=== PATIENT | male | born 1970 | race Caucasian/White ===

== ENCOUNTER → 2018-03-21 | Outpatient (CLI) | payer BC, OTHER ==
--- NOTE | 2018-03-21 09:56 | REP ---
Left ankle series: Four views. History: Left ankle pain. No comparison study. Findings: Ankle mortise is intact. There is moderate soft tissue swelling laterally and anteriorly. Mild medial soft tissue swelling is seen. No fracture is noted. There is Achilles and plantar calcaneal spurring. There is mild spurring at the inferior fibular tip. No definite fracture is seen. Impression: Anterolateral soft-tissue swelling. No fracture or other acute bony abnormality. Heel spurs. Electronically Signed by Mike Reis MD 03/21/2018 11:50 A
== END ==
LOC: M ADAMS 09:20
PROVIDERS: ATTEND Physician Assistant
DX: M25.572 Pain in left ankle and joints of left foot (principal); M77.32 Calcaneal spur, left foot

== ENCOUNTER 2020-04-01 10:00 | Inpatient (IN) | payer BC, OTHER ==
[~2020-04-01] VITALS: Ht 185.4 cm; Wt 138.7 kg
[2020-04-01] MEDS: ASPIRIN 81 MG ENTERIC TAB PO SCH (09:00)
[2020-04-01] MEDS ORDERED: IBUP200T45 PO (10:27)
[2020-04-01 10:52] LABS: BASO % 0.3 % (0.0-1.0); HEMATOCRIT 46.6 % (42.0-52.0); HEMOGLOBIN 15.5 g/dl (13.5-17.5); LYMPH # 0.7 10^3/uL (1.5-5.0); MEAN CORPUSCULAR HGB CONC 33.3 g/dl (32.0-36.5); MEAN CORPUSCULAR VOLUME 84.3 fl (80.0-96.0); MONO # 0.4 10^3/uL (0.0-0.8); MONO % 4.7 % (0.0-5.0); NEUTROPHILS # 6.6 10^3/uL (1.5-8.5); NEUTROPHILS % 85.6 % (36.0-66.0); PLATELET COUNT, AUTOMATED 230 10^3/uL (150-450); RED BLOOD COUNT 5.53 10^6/uL (4.30-6.10); WHITE BLOOD COUNT 7.7 10^3/uL (4.0-10.0)
[2020-04-01] MEDS ORDERED: ENOXAPARIN 100MG/1ML SYRINGE (J1650 PER 10MG) SC SCH (11:00)
[2020-04-01 11:15] LABS: ALBUMIN 3.2 GM/DL (3.2-5.2); ALT/SGPT 60 U/L (12-78); BILIRUBIN,DIRECT 0.1 MG/DL (0.0-0.2); BILIRUBIN,TOTAL 0.4 MG/DL (0.2-1.0); BLOOD UREA NITROGEN 19 MG/DL (7-18); CALCIUM LEVEL 8.8 MG/DL (8.5-10.1); CARBON DIOXIDE LEVEL 28 MEQ/L (21-32); CHLORIDE LEVEL 99 MEQ/L (98-107); CK-MB VALUE MASS < 1.0 NG/ML (<3.6); CPK CREATINE PHOSPHOKINASE 285 U/L (39-308); CREATININE FOR GFR 1.24 MG/DL (0.70-1.30); GLOMERULAR FILTRATION RATE > 60.0 (>56); GLUCOSE, FASTING 177 MG/DL (70-100); MB/CK RELATIVE INDEX 0.35 (< OR =4); NT-PRO BNP 17 PG/ML (<125); SODIUM LEVEL 131 MEQ/L (136-145); TOTAL PROTEIN 7.6 GM/DL (6.4-8.2); TROPONIN I < 0.02 NG/ML (< 0.10)
--- NOTE | 2020-04-01 11:24 | REP ---
INDICATION: DYSPNEA/COUGH. COMPARISON: No comparison study. TECHNIQUE: Semi-erect AP portable exam.. FINDINGS: There are patchy moderate infiltrates involving the right upper lobe left perihilar region and left base region consistent with pneumonia. Heart is not enlarged. Pleural angles are sharp. Pulmonary vasculature is not increased.. IMPRESSION: Bilateral infiltrates, fairly extensive, consistent with pneumonia.. <Electronically signed by Elgin Reis > 04/01/20 [id number]
[2020-04-01] MEDS ORDERED: dexameTHASONE 20MG/5ML VIAL (J1100 PER 1MG) IV ONE (11:30)
[2020-04-01 11:40] LABS: D-DIMER QUANT 549.86 ng/ml (<500)
[2020-04-01 11:59] LABS: C REACTIVE PROTEIN QUANTITATIV 7.58 MG/DL (0.00-0.30); FERRITIN 537 NG/ML (26-388); LDH LACTATE DEHYDROGENASE 375 U/L (87-241)
[2020-04-01] MEDS ORDERED: NS 500 ML IV ONE (12:45)
[2020-04-01] MEDS: cefTRIAXone SOD 1 GM in D5W MINI-BAG PLUS 50 ML IV SCH (13:54)
[2020-04-01 14:18] LABS: INR 1.01; PARTIAL THROMBOPLASTIN TIME 36.2 SECONDS (24.2-38.5); PROTHROMBIN TIME 13.5 SECONDS (12.5-14.3)
[2020-04-01] MEDS: AZITHROMYCIN INJ 500 MG, VIAL MATE ADAPTER 1 EACH in D5W 250 ML IV SCH (14:27)
[2020-04-01] MEDS ORDERED: REMDESIVIR 200 MG in NS 250 ML IV ONE (15:00)
[2020-04-01] MEDS ORDERED: SODIUM CHLORIDE 0.9% INJ 10 ML SYR IV ONE (17:00)
--- NOTE | 2020-04-01 20:20 | HPEPDOC ---
General Date of Admission Apr 01, 2020 at 12:43 Date of Service: Apr 01, 2020 Chief Complaint The patient is a 49-year-old male admitted with a reason for visit of Hypoxixa Pneumonia Due To Covid 19 Virus. Source: Patient History of Present Illness Mr. Barth is a 49-year-old male with obesity and former smoking who is here for worsening shortness of breath, cough, and diarrhea and found to have COVID pneumonia. He does not have a primary and has not seen a physician in some time. He is not on any medications at home. He works at [employer] and he is feeling okay until March 24 when he started to have chills. The following day he started to have malaise. He went to go be tested and he tested positive on March 25. 4 days prior to admission, he lost his sense of taste. 2 days prior to admission, started to have shortness of breath, dry cough, and diarrhea. Symptoms continued to worsen and he came to the ED. While in the ED, he saturated at 84% at room air. He required 5 L nasal cannula to saturate at 93%. Chest x-ray demonstrated bilateral infiltrates consistent with pneumonia. Patient will be admitted for COVID pneumonia. Home Medications Scheduled PRN Ibuprofen (Ibu-200) 200 Mg Tablet, 600 MG PO Q6H PRN for PAIN, (Reported) Allergies Coded Allergies: No Known Allergies (Unverified , 04/01/20) Past Medical History Medical History 1. Obesity Surgical History 1. Ankle fracture requiring surgery Family History Patient reports parents are healthy and alive. Denies any medical history in parents Social History * Smoker: former Smoker (quit smoking 20 years ago. Smoked for about 5 years. One pack per day) Alcohol: occationally (normally 10 beers a week. Due to illness last alcoholic was 2 weeks ago) Drugs: denies A-FIB/CHADSVASC A-FIB History Current/History of A-Fib/PAF?: No Review of Systems Constitutional: Reports: Chills, Fever Eyes: Denies: Vision change ENT: Denies: Sore Throat Skin: Denies: Rash Pulmonary: Reports: Dyspnea, Cough Cardiovascular: Denies: Chest Pain Gastrointestinal: Reports: Diarrhea; Denies: Nausea, Abdominal Pain Genitourinary: Denies: Dysuria Hematologic: Denies: Bruising Neurological: Denies: Weakness Psych: Denies: Anxiety, Depression Physical Examination General Exam: Positive: Alert, Cooperative Eye Exam: Positive: EOMI ENT Exam: Positive: Tongue Midline Neck Exam: Positive: Supple Chest Exam: Positive: Diminished Heart Exam: Positive: Rate Normal, Regular Rhythm Abdomen Exam: Positive: Normal bowel sounds, Soft, Other (obese); Negative: Tenderness Extremity Exam: Negative: Edema Neuro Exam: Positive: Cranial Nerves 3-12 NL Psych Exam: Positive: Mental status NL, Mood NL Vital Signs Vital Signs Date Time Temp Pulse Resp B/P (MAP) Pulse Ox O2 Delivery O2 Flow Rate FiO2 04/01/20 18:53 83 20 87 04/01/20 17:07 98.7 04/01/20 11:52 Nasal Cannula 5.0 04/01/20 11:31 142/65 (90) Laboratory Data Labs 24H Laboratory Tests 2 04/01/20 10:21: Immature Granulocyte % (Auto) 0.4, Neutrophils (%) (Auto) 85.6H, Lymphocytes (%) (Auto) 9.0L, Monocytes (%) (Auto) 4.7, Eosinophils (%) (Auto) 0.0, Basophils (%) (Auto) 0.3, Neutrophils # (Auto) 6.6, Lymphocytes # (Auto) 0.7L, Monocytes # (Auto) 0.4, Eosinophils # (Auto) 0.0, Basophils # (Auto) 0.0, Nucleated Red Blood Cells % (auto) 0.0, Prothrombin Time 13.5, Prothromb Time International Ratio 1.01, Activated Partial Thromboplast Time 36.2, Fibrinogen 789H, D-Dimer, Quantitative 549.86H, Anion Gap 4L, Glomerular Filtration Rate > 60.0, Calcium Level 8.8, Ferritin 537H, Total Bilirubin 0.4, Direct Bilirubin 0.1, Aspartate Amino Transf (AST/SGOT) 41H, Alanine Aminotransferase (ALT/SGPT) 60, Alkaline Phosphatase 51, Lactate Dehydrogenase 375H, Total Creatine Kinase 285, Creatine Kinase MB < 1.0, Creatine Kinase MB Relative Index 0.35, Troponin I < 0.02, C- Reactive Protein, Quantitative 7.58H, NT-Yvb-I-Type Natriuretic Peptide 17, Total Protein 7.6, Albumin 3.2, Albumin/Globulin Ratio 0.7, Thyroid Stimulating Hormone (TSH) 1.010 04/01/20 13:34: Lactic Acid Level 1.4, Procalcitonin 0.24 CBC/BMP Laboratory Tests 04/01/20 10:21 Microbiology Microbiology 04/01/20 Blood Culture, Received Pending 04/01/20 Blood Culture, Received Pending Assessment/Plan Mr. Barth is a 49-year-old male with obesity and history of smoking who is here for acute hypoxic respiratory failure 2/2 COVID pneumonia. He tested positive on March 25, but he started having respiratory symptoms 2 days prior to admission. At room air he saturating at 84%. He is requiring 5 L of oxygen to maintain his saturation. Imaging is suggestive of pneumonia. He will be treated for community-acquired pneumonia and pro-calcitonin will be ordered. He'll be given dexamethasone for his hypoxia. I'll start him on Remdesivir and DVT prophylaxis lovenox for COVID infection Plan / VTE VTE Prophylaxis Ordered?: Yes Plan Plan 1. Acute hypoxic respiratory failure secondary to COVID pneumonia At room air desaturated at 84% Secondary to COVID pneumonia Currently requires 5 L of oxygen to maintain saturation 2. COVID pneumonia Tested positive on March 25 Respiratory symptoms started 2 days prior Dexamethasone will be started DVT prophylaxis Lovenox as d-dimer is less than 5000 Remdesivir for 5 days Ceftriaxone and azithromycin for community acquired pneumonia Trend inflammatory markers 3. Obesity BMI of 39.7 Patient should follow-up with PCP to discuss weight loss strategies 4. DVT prophylaxis Lovenox DAXA COLIN DO Apr 01, 2020 20:20
[2020-04-02 00:18] VITALS: BP 137/71
[2020-04-02] MEDS: ENOXAPARIN 40MG/0.4ML SYRINGE (J1650 PER 10MG) SC SCH ×3 (01:09→22:45)
[2020-04-02 05:33] VITALS: BP 127/70
[2020-04-02 07:21] LABS: BASO % 0.1 % (0.0-1.0); HEMATOCRIT 43.9 % (42.0-52.0); HEMOGLOBIN 14.2 g/dl (13.5-17.5); LYMPH # 1.3 10^3/uL (1.5-5.0); MEAN CORPUSCULAR HGB CONC 32.3 g/dl (32.0-36.5); MEAN CORPUSCULAR VOLUME 86.4 fl (80.0-96.0); MONO # 0.6 10^3/uL (0.0-0.8); MONO % 6.6 % (0.0-5.0); NEUTROPHILS # 6.7 10^3/uL (1.5-8.5); PLATELET COUNT, AUTOMATED 239 10^3/uL (150-450); RED BLOOD COUNT 5.08 10^6/uL (4.30-6.10); WHITE BLOOD COUNT 8.6 10^3/uL (4.0-10.0)
[2020-04-02 07:55] LABS: ALBUMIN 2.9 GM/DL (3.2-5.2); ALT/SGPT 48 U/L (12-78); BILIRUBIN,DIRECT < 0.1 MG/DL (0.0-0.2); BILIRUBIN,TOTAL 0.4 MG/DL (0.2-1.0); BLOOD UREA NITROGEN 23 MG/DL (7-18); CALCIUM LEVEL 8.5 MG/DL (8.5-10.1); CARBON DIOXIDE LEVEL 26 MEQ/L (21-32); CHLORIDE LEVEL 101 MEQ/L (98-107); CREATININE FOR GFR 0.96 MG/DL (0.70-1.30); FERRITIN 540 NG/ML (26-388); GLOMERULAR FILTRATION RATE > 60.0 (>56); GLUCOSE, FASTING 143 MG/DL (70-100); MAGNESIUM LEVEL 2.3 MG/DL (1.8-2.4); NT-PRO BNP 47 PG/ML (<125); POTASSIUM SERUM 4.2 MEQ/L (3.5-5.1); SODIUM LEVEL 133 MEQ/L (136-145); TOTAL PROTEIN 6.9 GM/DL (6.4-8.2)
[2020-04-02 08:01] LABS: PROTHROMBIN TIME 13.4 SECONDS (12.5-14.3)
[2020-04-02 08:02] LABS: PARTIAL THROMBOPLASTIN TIME 33.7 SECONDS (24.2-38.5)
[2020-04-02] MEDS: dexameTHASONE 4 MG/ML 1ML VIAL (J1100 PER 1MG) IV SCH (10:09)
[2020-04-02] MEDS: ASPIRIN 81 MG ENTERIC TAB PO SCH (10:09)
[2020-04-02 12:00] VITALS: BP 118/63
--- NOTE | 2020-04-02 12:15 | IPNPDOC ---
Subjective Date Seen The patient was seen on 04/02/20. Subjective Chief Complaint/HPI SUBJECTIVE: Pt was seen and examined at bedside. He states that he feels much better from when he came in. He is able to speak with me in full sentences without any sob, or accessory muscle use. He's required more oxygen to hold his saturations >90% and currently on vapotherm 100% FIO2 and 35L. He denies CP, fever, chills, n/v/d, or abdominal discomfort. OBJECTIVE: PHYSICAL EXAMINATION: VS: see below. Currently satting 91% on 35 L 100% FIO2 Constitutional: Awake and alert, NAD, able to speak in full sentences Respiratory: No use of accessory muscles. unable to appreciate wheezing or rales Cardiovascular: no m/g/r appreciated; no lower extr edema Gastrointestinal: Abdomen is soft, non distended, non tender, normal bowel sounds Neurologic: No focal neurological deficit Mental Status: A&O x3, normal affect Skin: Warm, dry, no cyanosis or clubbing LABS: SEE BELOW IMAGING: CXR: 04/01 shows bilateral infiltrates that are fairly extensive ASSESSMENT AND PLAN: This is an obese 49-year-old male who is a former smoking, who presents to [facility] ER with cc of worsening shortness of breath, cough, and diarrhea and found to have COVID pneumonia. He works at [employer] and he is feeling okay until March 24 when he started to have chills. The following day he started to have malaise. He went to go be tested and he tested positive on March 25. 4 days prior to this admission, he lost his sense of taste. 2 days prior to admission, he started to have shortness of breath, dry cough, and diarrhea. In the ED, he satting at 84% on room air. He required 5 L nasal cannula to saturate at 93%. Chest x-ray demonstrated extensive bilateral infiltrates consistent with pneumonia. Patient will be admitted for COVID pneumonia with superimposed PNA. Since admission, pt's had increased requirements of oxygen and he's currently requiring vapotherm 35L 100% FIO2 to sat over 90%. We will continue to trend his inflammatory markers and try to wean down oxygen as tolerated. His procal and LA are wnl. We will continue decadron and remdisivir and lovenox 40mg BID for anticoagulation. Currently, this am at bedside his FIO2 is weaned to 85% and 35L and we will continue to monitor his saturations to titrate his O2 >90%. 1. Acute hypoxic respiratory failure secondary to COVID 19 - Tested positive on 03/25/2020 - With superimposed PNA - XR chest shows extensive bilateral infiltrates - Currently requiring vapotherm 35 L 100% FIO2 to sat over 90% - Will order for proning - Will order incentive spirometry and acapella - C/w trending markers - Lovenox 40 BID for anticoag - C/w remdisivir and dexa - Procal wnl; however, high suspicion for a superimposed CAP- c/w zithromax and rocephin #Obesity - BMI 39 - Pt would benefit from a pulmonogy outpt followup to eval for FRANCISCO - Advise follow with PCP outpt for weight loss strategies and to go over CV risk factors DVT ppx: Lovenox GI ppx: Protonix Fluids: none Diet: Regular Code status: Full Disposition: Pt may worsen as he's been requiring more O2 in a short amount of time. Will order for awake proning and encourage incentive spirometry and acapella for lung expansion. Will try and wean FIO2 to titrate O2 >90% as can be tolerated by the patient. Objective Physical Examination General Exam: Positive: Alert, Cooperative Eye Exam: Positive: EOMI ENT Exam: Positive: Tongue Midline Neck Exam: Positive: Supple Chest Exam: Positive: Diminished Heart Exam: Positive: Rate Normal, Regular Rhythm Abdomen Exam: Positive: Normal bowel sounds, Soft, Other (obese); Negative: Tenderness Extremity Exam: Negative: Edema Neuro Exam: Positive: Cranial Nerves 3-12 NL Psych Exam: Positive: Mental status NL, Mood NL Assessment /Plan Plan/VTE VTE Prophylaxis Ordered?: Yes VS, I&O, 24H, Fishbone Vital Signs/I&O Vital Signs Date Time Temp Pulse Resp B/P (MAP) Pulse Ox O2 Delivery O2 Flow Rate FiO2 04/02/20 08:38 91 HVNI-Vapotherm 35.0 100 04/02/20 05:33 99.7 87 30 127/70 (89) I&O- Last 24 Hours up to 6 AM 04/02/20 06:00 Intake Total 690 ml Balance 690 ml Laboratory Data 24H LABS Laboratory Tests 2 04/01/20 13:34: Lactic Acid Level 1.4, Procalcitonin 0.24 04/02/20 06:37: Procalcitonin 0.22, Immature Granulocyte % (Auto) 0.3, Neutrophils (%) (Auto) 78.0H, Lymphocytes (%) (Auto) 15.0L, Monocytes (%) (Auto) 6.6H, Eosinophils (%) (Auto) 0.0, Basophils (%) (Auto) 0.1, Neutrophils # (Auto) 6.7, Lymphocytes # (Auto) 1.3L, Monocytes # (Auto) 0.6, Eosinophils # (Auto) 0.0, Basophils # (Auto ) 0.0, Nucleated Red Blood Cells % (auto) 0.0, Prothrombin Time 13.4, Prothromb Time International Ratio 1.00, Activated Partial Thromboplast Time 33.7, Fibrinogen 677H, Anion Gap 6L, Glomerular Filtration Rate > 60.0, Calcium Level 8.5, Magnesium Level 2.3, Ferritin 540H, Total Bilirubin 0.4, Direct Bilirubin < 0.1, Aspartate Amino Transf (AST/SGOT) 29, Alanine Aminotransferase (ALT/SGPT) 48, Alkaline Phosphatase 45, CM-Gnf-S-Type Natriuretic Peptide 47, Total Protein 6.9, Albumin 2.9L, Albumin/Globulin Ratio 0.7 04/02/20 07:00: CBC/BMP Laboratory Tests 04/02/20 06:37 Microbiology Microbiology 04/01/20 Blood Culture, Received Pending 04/01/20 Blood Culture, Received Pending GME ATTESTATION GME ATTESTATION My faculty preceptor for this patient encounter was physically present during the encounter and was fully available. All aspects of the patient interview, examination, medical decision making process, and medical care plan development were reviewed and approved by the faculty preceptor. The faculty preceptor is aware and concurs with the plan as stated in the body of this note and will att est to such by his/her cosignature. ATTENDING NOTE I, Fantasma Garcias MD, have independently examined this patient and performed my own physical exam, as well as reviewed the documentation and edited where necessary. I have discussed in detail with the resident / student the findings and plan of treatment as documented by the resident / student and edited their note. I agree with their findings and treatment plan and have edited their documentation. Lakshmi Velarde DO Apr 02, 2020 11:07 FANTASMA GARCIAS MD Apr 02, 2020 14:49
[2020-04-02] MEDS: AZITHROMYCIN INJ 500 MG, VIAL MATE ADAPTER 1 EACH in D5W 250 ML IV SCH (13:40)
[2020-04-02] MEDS: cefTRIAXone SOD 1 GM in D5W MINI-BAG PLUS 50 ML IV SCH (14:49)
[2020-04-02] MEDS: REMDESIVIR 100 MG in NS 250 ML IV SCH (15:33)
[2020-04-02] MEDS: SODIUM CHLORIDE 0.9% INJ 10 ML SYR IV SCH (15:33)
[2020-04-02 19:38] VITALS: BP 126/65
--- NOTE | 2020-04-02 21:25 | ECGEPIP ---
[facility] - ED Test Date: 2020-04-01 Pat Name: TIARA MENDIETA Department: Room: [place] [address] Gender: Male Service Manager: : [id number] Requested By: JOHN Paez Order Number: [id number] Reading MD: Juan Pacheco Measurements Intervals [place] Rate: 83 P: 58 HI: 165 QRS: -16 QRSD: 118 T: 26 QT: 368 QTc: 433 Interpretive Statements SINUS RHYTHM INDETERMINATE AXIS POOR R WAVE PROGRESSION PATTERN CONSISTENT WITH PULMONARY DISEASE MODERATE INTRAVENTRICULAR CONDUCTION DELAY NO PRIORS FOR COMPARISON Electronically Signed on 04-02-2020 21:25:37 EST by Juan Pacheco
[2020-04-02 23:04] VITALS: O2SAT 91
[2020-04-02 23:57] VITALS: BP 130/84
[2020-04-03] VITALS (9 sets, daily range): BP systolic 113–151; BP diastolic 59–67; O2SAT 89–95
[2020-04-03] MEDS: ASPIRIN 81 MG ENTERIC TAB PO SCH (08:37)
[2020-04-03] MEDS: dexameTHASONE 4 MG/ML 1ML VIAL (J1100 PER 1MG) IV SCH (08:37)
[2020-04-03 11:16] LABS: BASO % 0.2 % (0.0-1.0); HEMATOCRIT 43.9 % (42.0-52.0); HEMOGLOBIN 13.8 g/dl (13.5-17.5); LYMPH # 1.1 10^3/uL (1.5-5.0); LYMPH % 9.6 % (24.0-44.0); MEAN CORPUSCULAR HEMOGLOBIN 27.2 pg (27.0-33.0); MEAN CORPUSCULAR HGB CONC 31.4 g/dl (32.0-36.5); MEAN CORPUSCULAR VOLUME 86.4 fl (80.0-96.0); MONO # 0.7 10^3/uL (0.0-0.8); MONO % 6.1 % (0.0-5.0); NEUTROPHILS # 9.3 10^3/uL (1.5-8.5); NEUTROPHILS % 83.3 % (36.0-66.0); PLATELET COUNT, AUTOMATED 300 10^3/uL (150-450); RED BLOOD COUNT 5.08 10^6/uL (4.30-6.10); WHITE BLOOD COUNT 11.2 10^3/uL (4.0-10.0)
[2020-04-03 11:43] LABS: INR 1.06
[2020-04-03 11:44] LABS: PARTIAL THROMBOPLASTIN TIME 32.9 SECONDS (24.2-38.5)
[2020-04-03 11:54] LABS: ALBUMIN 2.8 GM/DL (3.2-5.2); ALT/SGPT 43 U/L (12-78); BILIRUBIN,DIRECT 0.2 MG/DL (0.0-0.2); BILIRUBIN,TOTAL 0.4 MG/DL (0.2-1.0); BLOOD UREA NITROGEN 20 MG/DL (7-18); CALCIUM LEVEL 8.6 MG/DL (8.5-10.1); CARBON DIOXIDE LEVEL 27 MEQ/L (21-32); CHLORIDE LEVEL 99 MEQ/L (98-107); CREATININE FOR GFR 0.93 MG/DL (0.70-1.30); FERRITIN 516 NG/ML (26-388); GLOMERULAR FILTRATION RATE > 60.0 (>56); GLUCOSE, FASTING 210 MG/DL (70-100); MAGNESIUM LEVEL 2.3 MG/DL (1.8-2.4); NT-PRO BNP 142 PG/ML (<125); POTASSIUM SERUM 4.3 MEQ/L (3.5-5.1); SODIUM LEVEL 133 MEQ/L (136-145); TOTAL PROTEIN 6.7 GM/DL (6.4-8.2)
[2020-04-03] MEDS ORDERED: guaiFENesin SYRUP 200 MG/10 ML UDC PO PRN (12:00)
[2020-04-03] MEDS: ENOXAPARIN 40MG/0.4ML SYRINGE (J1650 PER 10MG) SC SCH ×2 (14:12→23:15)
[2020-04-03] MEDS: AZITHROMYCIN INJ 500 MG, VIAL MATE ADAPTER 1 EACH in D5W 250 ML IV SCH (14:12)
[2020-04-03] MEDS: BENZONATATE 100 MG CAP PO SCH ×3 (16:00→23:35)
[2020-04-03] MEDS: cefTRIAXone SOD 1 GM in D5W MINI-BAG PLUS 50 ML IV SCH (16:02)
--- NOTE | 2020-04-03 16:16 | IPNPDOC ---
Subjective Date Seen The patient was seen on 04/03/20. Subjective Chief Complaint/HPI SUBJECTIVE: Pt was seen and examined at bedside sitting on the edge of his bed leaned over his tray table. Pt is very pleasant. He states that he continues to feel better. He is able to speak with me in full sentences without any sob, or accessory muscle use. He's required more oxygen to hold his saturations >90% and currently on vapotherm 100% FIO2 and 33L. He states that he's been coughing and feels like it's breaking up in his chest but he cannot cough it out. Will order for some robitussin and tesslon perles. He denies CP, fever, chills, n/v/d, or abdominal discomfort. OBJECTIVE: PHYSICAL EXAMINATION: VS: see below. Currently satting 91% on 35 L 100% FIO2 Constitutional: Awake and alert, NAD, able to speak in full sentences Respiratory: No use of accessory muscles. unable to appreciate wheezing or rales Cardiovascular: no m/g/r appreciated; no lower extr edema Gastrointestinal: Abdomen is soft, non distended, non tender, normal bowel sounds Neurologic: No focal neurological deficit Mental Status: A&O x3, normal affect Skin: Warm, dry, no cyanosis or clubbing LABS: SEE BELOW IMAGING: CXR: 04/01 shows bilateral infiltrates that are fairly extensive ASSESSMENT AND PLAN: This is an obese 49-year-old male who is a former smoking, who presents to [facility] ER with cc of worsening shortness of breath, cough, and diarrhea and found to have COVID pneumonia. He works at [employer] and he is feeling okay until March 24 when he started to have chills. The following day he started to have malaise. He went to go be tested and he tested positive on March 25. 4 days prior to this admission, he lost his sense of taste. 2 days prior to admission, he started to have shortness of breath, dry cough, and diarrhea. In the ED, he satting at 84% on room air. He required 5 L nasal cannula to saturate at 93%. Chest x-ray demonstrated extensive bilateral infiltrates consistent with pneumonia. Patient will be admitted for COVID pneumonia with superimposed PNA. Since admission, pt's had increased requirements of oxygen and he's currently requiring vapotherm 35L 100% FIO2 to sat over 90%. We will continue to trend his inflammatory markers and try to wean down oxygen as tolerated. His procal and LA are wnl. We will continue decadron and remdisivir and lovenox 40mg BID for anticoagulation. Currently, this am at bedside his FIO2 is weaned to 85% and 35L and we will continue to monitor his saturations to titrate his O2 >90%. 1. Acute hypoxic respiratory failure secondary to COVID 19 - Tested positive on 03/25/2020 - With superimposed PNA -XR chest shows extensive bilateral infiltrates - Currently requiring vapotherm 33 L 100% FIO2 to sat over 90%- will continue to wean as tolerated - Continue to encourage awake proning - Will order for tessjamaln luna and andres as pt complains of cough but unable to cough up anything - C/w incentive spirometry and acapella - C/w trending markers - Lovenox 40 BID for anticoag - C/w remdisivir and dexa - Procal wnl; however, high suspicion for a superimposed CAP- c/w zithromax and rocephin #Obesity - BMI 39 - Pt would benefit from a pulmonology outpt followup to eval for FRANCISCO/[facility]HS - Advise follow with PCP outpt for weight loss strategies and to go over CV risk factors DVT ppx: Lovenox GI ppx: Protonix Fluids: none Diet: Regular Code status: Full Disposition: Pt may worsen as he's been requiring more O2 in a short amount of time. Will order for awake proning and encourage incentive spirometry and acapella for lung expansion. Will try and wean FIO2 to titrate O2 >90% as can be tolerated by the patient. Objective Physical Examination General Exam: Positive: Alert, Cooperative Eye Exam: Positive: EOMI ENT Exam: Positive: Tongue Midline Neck Exam: Positive: Supple Chest Exam: Positive: Diminished Heart Exam: Positive: Rate Normal, Regular Rhythm Abdomen Exam: Positive: Normal bowel sounds, Soft, Other (obese); Negative: Tenderness Extremity Exam: Negative: Edema Neuro Exam: Positive: Cranial Nerves 3-12 NL Psych Exam: Positive: Mental status NL, Mood NL Assessment /Plan Plan/VTE VTE Prophylaxis Ordered?: Yes VS, I&O, 24H, Fishbone Vital Signs/I&O Vital Signs Date Time Temp Pulse Resp B/P (MAP) Pulse Ox O2 Delivery O2 Flow Rate FiO2 04/03/20 08:27 91 HVNI-Vapotherm 33.0 100 04/03/20 08:00 98.8 79 24 126/61 (82) I&O- Last 24 Hours up to 6 AM 04/03/20 06:00 Intake Total 1630 ml Output Total 2050 ml Balance -420 ml Laboratory Data Microbiology Microbiology 04/01/20 Blood Culture - Preliminary, Resulted No growth after 24 hours . All specim... 04/01/20 Blood Culture - Preliminary, Resulted No growth after 24 hours . All specim... GME ATTESTATION GME ATTESTATION My faculty preceptor for this patient encounter was physically present during the encounter and was fully available. All aspects of the patient interview, exa mination, medical decision making process, and medical care plan development were reviewed and approved by the faculty preceptor. The faculty preceptor is aware and concurs with the plan as stated in the body of this note and will attest to such by his/her cosignature. Lakshmi Velarde DO Apr 03, 2020 10:05
[2020-04-03] MEDS: REMDESIVIR 100 MG in NS 250 ML IV SCH (17:26)
[2020-04-03] MEDS: SODIUM CHLORIDE 0.9% INJ 10 ML SYR IV SCH (17:53)
[2020-04-03] MEDS: NICOTINE 21MG/24HR 1 EA TRANSDERMAL TD SCH (21:00)
[2020-04-04] VITALS (8 sets, daily range): BP systolic 122–132; BP diastolic 63–70; O2SAT 90–92
[2020-04-04 07:55] LABS: BASO % 0.2 % (0.0-1.0); HEMOGLOBIN 13.3 g/dl (13.5-17.5); LYMPH # 2.1 10^3/uL (1.5-5.0); LYMPH % 18.8 % (24.0-44.0); MEAN CORPUSCULAR HGB CONC 30.9 g/dl (32.0-36.5); MEAN CORPUSCULAR VOLUME 87.4 fl (80.0-96.0); MONO # 0.7 10^3/uL (0.0-0.8); MONO % 6.7 % (0.0-5.0); NEUTROPHILS # 8.1 10^3/uL (1.5-8.5); NEUTROPHILS % 73.8 % (36.0-66.0); PLATELET COUNT, AUTOMATED 335 10^3/uL (150-450); RED BLOOD COUNT 4.92 10^6/uL (4.30-6.10)
[2020-04-04 08:31] LABS: INR 1.09; PROTHROMBIN TIME 14.4 SECONDS (12.5-14.3)
[2020-04-04 08:33] LABS: PARTIAL THROMBOPLASTIN TIME 32.6 SECONDS (24.2-38.5)
[2020-04-04 09:05] LABS: ALBUMIN 2.7 GM/DL (3.2-5.2); ALT/SGPT 40 U/L (12-78); BILIRUBIN,DIRECT 0.1 MG/DL (0.0-0.2); BILIRUBIN,TOTAL 0.4 MG/DL (0.2-1.0); BLOOD UREA NITROGEN 20 MG/DL (7-18); CALCIUM LEVEL 8.3 MG/DL (8.5-10.1); CARBON DIOXIDE LEVEL 28 MEQ/L (21-32); CHLORIDE LEVEL 102 MEQ/L (98-107); CREATININE FOR GFR 0.79 MG/DL (0.70-1.30); FERRITIN 424 NG/ML (26-388); GLOMERULAR FILTRATION RATE > 60.0 (>56); GLUCOSE, FASTING 113 MG/DL (70-100); MAGNESIUM LEVEL 2.3 MG/DL (1.8-2.4); NT-PRO BNP 127 PG/ML (<125); POTASSIUM SERUM 4.2 MEQ/L (3.5-5.1); SODIUM LEVEL 136 MEQ/L (136-145); TOTAL PROTEIN 6.4 GM/DL (6.4-8.2)
[2020-04-04] MEDS: ENOXAPARIN 40MG/0.4ML SYRINGE (J1650 PER 10MG) SC SCH ×2 (09:17→21:58)
[2020-04-04] MEDS: BENZONATATE 100 MG CAP PO SCH ×3 (09:17→21:58)
[2020-04-04] MEDS: ASPIRIN 81 MG ENTERIC TAB PO SCH (09:17)
[2020-04-04] MEDS: dexameTHASONE 4 MG/ML 1ML VIAL (J1100 PER 1MG) IV SCH (09:18)
[2020-04-04] MEDS: SODIUM CHLORIDE 0.9% INJ 10 ML SYR IV SCH (16:00)
--- NOTE | 2020-04-04 16:00 | IPNPDOC ---
Date Seen The patient was seen on 04/04/20. Progress Note SUBJECTIVE: Reports significant improvement in cough with benzonatate, dyspnea is improving as well, no new complaints today. He is tolerating his diet without difficulty, denies nausea, vomiting, abdominal pain or diarrhea. PHYSICAL EXAMINATION: VITAL SIGNS: Please see below. GENERAL: No distress HEENT: Normocephalic, atraumatic, moist mucous membranes NECK: Supple CARDIOVASCULAR EXAMINATION: S1, S2, no murmurs RESPIRATORY EXAMINATION: Basilar rhonchi, no wheezing ABDOMINAL EXAMINATION: Soft, nontender, nondistended, positive bowel sounds EXTREMITIES: Range of motion intact SKIN: No rash NEUROLOGICAL EXAMINATION: Alert and oriented 3, no focal deficits PSYCHIATRIC EXAMINATION: Calm and cooperative LABORATORY DATA, IMAGING STUDIES, MICROBIOLOGY: Please see below. ASSESSMENT AND PLAN: 49-year-old obese male is admitted for acute hypoxemic respiratory failure secondary to Covid pneumonia PROBLEMS: 1. Acute hypoxemic respiratory failure secondary to Covid pneumonia: Rest or function has been stable and slowly improving over the past few days, remains on OptiFlow, currently on 100% FiO2. We'll titrate as needed. Continue Decadron, Remdisivir and empiric antibiotics. Benzonatate as needed. Lovenox for DVT prophylaxis VS, I&O, 24H, Fishbone Vital Signs/I&O Vital Signs Date Time Temp Pulse Resp B/P (MAP) Pulse Ox O2 Delivery O2 Flow Rate FiO2 04/04/20 09:03 93 HVNI-Vapotherm 36.0 100 04/04/20 08:00 95.6 78 20 132/63 (86) I&O- Last 24 Hours up to 6 AM 04/04/20 06:00 Intake Total 1240 ml Output Total 1100 ml Balance 140 ml Laboratory Data 24H LABS Laboratory Tests 2 04/04/20 06:58: Immature Granulocyte % (Auto) 0.5, Neutrophils (%) (Auto) 73.8H, Lymphocytes (%) (Auto) 18.8L, Monocytes (%) (Auto) 6.7H, Eosinophils (%) (Auto) 0.0, Basophils (%) (Auto) 0.2, Neutrophils # (Auto) 8.1, Lymphocytes # (Auto) 2.1, Monocytes # (Auto) 0.7, Eosinophils # (Auto) 0.0, Basophils # (Auto) 0.0, Nucleated Red Blood Cells % (auto) 0.0, Prothrombin Time 14.4H, Prothromb Time International Ratio 1.09, Activated Partial Thromboplast Time 32.6, Fibrinogen 646H, Anion Gap 6L, Glomerular Filtration Rate > 60.0, Calcium Level 8.3L, Magnesium Level 2.3, Ferritin 424H, Total Bilirubin 0.4, Direct Bilirubin 0.1, Aspartate Amino Transf (AST/SGOT) 24, Alanine Aminotransferase (ALT/SGPT) 40, Alkaline Phosphatase 47, HH-Tbp-Q-Type Natriuretic Peptide 127H, Total Protein 6.4, Albumin 2.7L, Albumin/Globulin Ratio 0.7 CBC/BMP Laboratory Tests 04/04/20 06:58 Microbiology Microbiology 04/01/20 Blood Culture - Preliminary, Resulted No Growth after 72 hours. All specime... 04/01/20 Blood Culture - Preliminary, Resulted No Growth after 72 hours. All specime... JENN MORTON MD Apr 04, 2020 16:00
[2020-04-04] MEDS: cefTRIAXone SOD 1 GM in D5W MINI-BAG PLUS 50 ML IV SCH (16:13)
[2020-04-04] MEDS: REMDESIVIR 100 MG in NS 250 ML IV SCH (17:03)
[2020-04-04] MEDS: NICOTINE 21MG/24HR 1 EA TRANSDERMAL TD SCH (19:45)
[2020-04-05] VITALS (8 sets, daily range): BP systolic 135–165; BP diastolic 64–78; O2SAT 87–97
[2020-04-05] MEDS: dexameTHASONE 4 MG/ML 1ML VIAL (J1100 PER 1MG) IV SCH ×2 (09:00→09:11)
[2020-04-05] MEDS: ASPIRIN 81 MG ENTERIC TAB PO SCH (09:10)
[2020-04-05] MEDS: BENZONATATE 100 MG CAP PO SCH ×3 (09:10→20:39)
[2020-04-05 10:47] LABS: BASO % 0.2 % (0.0-1.0); EOS % 0.2 % (0.0-3.0); HEMATOCRIT 42.7 % (42.0-52.0); HEMOGLOBIN 13.6 g/dl (13.5-17.5); LYMPH # 2.1 10^3/uL (1.5-5.0); MEAN CORPUSCULAR HEMOGLOBIN 27.8 pg (27.0-33.0); MEAN CORPUSCULAR HGB CONC 31.9 g/dl (32.0-36.5); MEAN CORPUSCULAR VOLUME 87.3 fl (80.0-96.0); MONO # 0.6 10^3/uL (0.0-0.8); MONO % 4.9 % (0.0-5.0); NEUTROPHILS # 9.6 10^3/uL (1.5-8.5); PLATELET COUNT, AUTOMATED 389 10^3/uL (150-450); RED BLOOD COUNT 4.89 10^6/uL (4.30-6.10); WHITE BLOOD COUNT 12.5 10^3/uL (4.0-10.0)
[2020-04-05] MEDS: ENOXAPARIN 40MG/0.4ML SYRINGE (J1650 PER 10MG) SC SCH (11:00)
[2020-04-05 11:04] LABS: INR 1.11; PROTHROMBIN TIME 14.6 SECONDS (12.5-14.3)
[2020-04-05 11:05] LABS: PARTIAL THROMBOPLASTIN TIME 29.2 SECONDS (24.2-38.5)
[2020-04-05 11:25] LABS: ALBUMIN 2.6 GM/DL (3.2-5.2); ALT/SGPT 40 U/L (12-78); BILIRUBIN,DIRECT < 0.1 MG/DL (0.0-0.2); BILIRUBIN,TOTAL 0.4 MG/DL (0.2-1.0); BLOOD UREA NITROGEN 20 MG/DL (7-18); CALCIUM LEVEL 8.5 MG/DL (8.5-10.1); CARBON DIOXIDE LEVEL 23 MEQ/L (21-32); CHLORIDE LEVEL 102 MEQ/L (98-107); CREATININE FOR GFR 0.86 MG/DL (0.70-1.30); FERRITIN 354 NG/ML (26-388); GLOMERULAR FILTRATION RATE > 60.0 (>56); GLUCOSE, FASTING 172 MG/DL (70-100); MAGNESIUM LEVEL 2.1 MG/DL (1.8-2.4); NT-PRO BNP 120 PG/ML (<125); POTASSIUM SERUM 3.9 MEQ/L (3.5-5.1); SODIUM LEVEL 134 MEQ/L (136-145); TOTAL PROTEIN 7.1 GM/DL (6.4-8.2)
--- NOTE | 2020-04-05 11:36 | IPN ---
PROGRESS NOTE DATE: 04/05/2020 SUBJECTIVE: Jose is seen with COVID related pneumonia with hypoxemia. He is requiring high flow oxygen particularly at night. I believe he has sleep apnea. He has loud snoring and excessive somnolence, he probably has undiagnosed sleep apnea which accounts for some of his nocturnal drop of his saturations. PHYSICAL EXAMINATION: VITAL SIGNS: Afebrile. Vital signs are stable. O2 sat is 90% on Vapotherm. GENERAL APPEARANCE: Alert, conversant, in no distress. LUNGS: Decreased breath sounds. Scattered rhonchi. HEART: Regular rhythm. ABDOMEN: Soft, obese, nontender, no masses. EXTREMITIES: Trace peripheral edema. LABORATORY DATA: Labs are all pending today. IMPRESSION: Acute hypoxemic respiratory failure from COVID pneumonia. PLAN: He is on Decadron, Remdesivir and empiric antibiotics. Once oxygen requirements drop he can be discharged home with supplemental oxygen. He does not have a primary care provider, this will need to be arranged before discharge as well.
[2020-04-05] MEDS ORDERED: LIDOCAINE 1% MDV 20ML VIAL As Ordered ONE (16:43)
[2020-04-05] MEDS: SODIUM CHLORIDE 0.9% INJ 10 ML SYR IV SCH ×2 (18:24→20:39)
[2020-04-05] MEDS: cefTRIAXone SOD 1 GM in D5W MINI-BAG PLUS 50 ML IV SCH (18:25)
[2020-04-05] MEDS: NICOTINE 21MG/24HR 1 EA TRANSDERMAL TD SCH (20:40)
[2020-04-05] MEDS: REMDESIVIR 100 MG in NS 250 ML IV SCH (20:41)
[2020-04-06] VITALS: BP 159/74; O2SAT 92
[2020-04-06] MEDS: ENOXAPARIN 40MG/0.4ML SYRINGE (J1650 PER 10MG) SC SCH ×3 (00:01→22:08)
[2020-04-06 04:00] VITALS: BP 147/70; O2SAT 90
[2020-04-06 08:00] VITALS: O2SAT 86
[2020-04-06 08:26] LABS: BASO % 0.2 % (0.0-1.0); EOS # 0.1 10^3/uL (0.0-0.5); EOS % 0.6 % (0.0-3.0); HEMATOCRIT 42.6 % (42.0-52.0); HEMOGLOBIN 13.9 g/dl (13.5-17.5); LYMPH % 16.2 % (24.0-44.0); MEAN CORPUSCULAR HEMOGLOBIN 28.2 pg (27.0-33.0); MEAN CORPUSCULAR HGB CONC 32.6 g/dl (32.0-36.5); MEAN CORPUSCULAR VOLUME 86.4 fl (80.0-96.0); MONO # 0.9 10^3/uL (0.0-0.8); NEUTROPHILS # 9.3 10^3/uL (1.5-8.5); NEUTROPHILS % 74.9 % (36.0-66.0); PLATELET COUNT, AUTOMATED 404 10^3/uL (150-450); RED BLOOD COUNT 4.93 10^6/uL (4.30-6.10); WHITE BLOOD COUNT 12.5 10^3/uL (4.0-10.0)
[2020-04-06 08:39] LABS: INR 1.17; PROTHROMBIN TIME 15.2 SECONDS (12.5-14.3)
[2020-04-06 08:40] LABS: PARTIAL THROMBOPLASTIN TIME 31.3 SECONDS (24.2-38.5)
[2020-04-06 09:07] LABS: ALBUMIN 2.7 GM/DL (3.2-5.2); ALT/SGPT 43 U/L (12-78); BILIRUBIN,DIRECT 0.2 MG/DL (0.0-0.2); BILIRUBIN,TOTAL 0.6 MG/DL (0.2-1.0); BLOOD UREA NITROGEN 13 MG/DL (7-18); CALCIUM LEVEL 8.2 MG/DL (8.5-10.1); CARBON DIOXIDE LEVEL 24 MEQ/L (21-32); CHLORIDE LEVEL 102 MEQ/L (98-107); CREATININE FOR GFR 0.74 MG/DL (0.70-1.30); FERRITIN 350 NG/ML (26-388); GLOMERULAR FILTRATION RATE > 60.0 (>56); GLUCOSE, FASTING 104 MG/DL (70-100); MAGNESIUM LEVEL 2.1 MG/DL (1.8-2.4); NT-PRO BNP 93 PG/ML (<125); POTASSIUM SERUM 4.4 MEQ/L (3.5-5.1); SODIUM LEVEL 135 MEQ/L (136-145); TOTAL PROTEIN 6.4 GM/DL (6.4-8.2)
[2020-04-06] MEDS: BENZONATATE 100 MG CAP PO SCH ×3 (09:59→22:09)
[2020-04-06] MEDS: ASPIRIN 81 MG ENTERIC TAB PO SCH (10:00)
[2020-04-06] MEDS: dexameTHASONE 4 MG/ML 1ML VIAL (J1100 PER 1MG) IV SCH (10:00)
--- NOTE | 2020-04-06 10:00 | REP ---
INDICATION: Poor Access. COMPARISON: None. TECHNIQUE: The procedure was performed under the direct supervision of Dr. Pham. The risks and benefits of the procedure were explained to the patient and verbal consent was obtained as paperwork was not allowed into the room due to the patient being in a COVID isolation room. The verbal consent was witnessed by to nurses. The procedure was performed in the room at the patient's bedside. The right basilic vein was localized using ultrasound guidance. The skin was prepped and draped in a sterile fashion. 1% lidocaine was used as a local anesthetic. Using ultrasound guidance the basilic vein was cannulated and a 0.018 guidewire was inserted. The needle was removed and a 5.5 Syrian dilator and peel-away sheath was inserted over the guidewire. A 5.5 Syrian dual lumen catheter was left a length of 16.5 cm. The dilator was removed and the catheter was inserted over the guidewire. The peel-away sheath was removed and the catheter was flushed with heparinized saline as per hospital protocol. The catheter was affixed to the skin and a sterile dressing was applied. The patient tolerated the procedure well and there were no immediate complications. FINDINGS: None IMPRESSION: Dual lumen midline catheter inserted in the right basilic vein. <Electronically signed by Zeeshan Trotter > 04/06/20 [id number] <Electronically signed by Daniel Pham > 04/06/20 0957
[2020-04-06] MEDS: SODIUM CHLORIDE 0.9% INJ 10 ML SYR IV PRN (10:01)
[2020-04-06 12:00] VITALS: BP 161/71; O2SAT 87
[2020-04-06 16:00] VITALS: BP 150/82; O2SAT 84
[2020-04-06] MEDS ORDERED: FUROSEMIDE 100MG/10ML VIAL (J1940) IV ONE (16:00)
[2020-04-06] MEDS: ALBUTEROL 90 MCG/ACT 8GM HFA INHALER INH SCH ×3 (16:00→22:34)
[2020-04-06 20:00] VITALS: BP 152/76
[2020-04-06] MEDS: SYMBICORT 160/4.5MCG INHALER 6GM INH SCH (20:13)
--- NOTE | 2020-04-06 20:19 | REP ---
INDICATION: increasing oxygen requirement COMPARISON: 04/01/2020 TECHNIQUE: Portable AP view of the chest FINDINGS: Mediastinum and cardiac silhouette are stable. Bilateral opacities are again identified in somewhat varied distribution with decreased right upper lobe opacity, but increased right lower lobe opacity as per prior examination and somewhat stable left mid to lower lobe opacities. No effusion. No pneumothorax. Skeletal structures intact. IMPRESSION: Bilateral opacities varied in distribution but overall relatively similar to prior exam. <Electronically signed by Rudy Granado > 04/06/202014
--- NOTE | 2020-04-06 20:59 | IPNPDOC ---
Text Note Date of Service The patient was seen on 04/06/20. NOTE SUBJECTIVE: Reports significant improvement in cough and dyspnea is improving as well, no new complaints today. Overall feels stronger. Though he oxygen requirements still remain very high . On Vapotherm with 90% Fio2. He is tolerating his diet without difficulty, denies nausea, vomiting, abdominal pain or diarrhea. PHYSICAL EXAMINATION: VITAL SIGNS: Please see below. GENERAL: No distress HEENT: Normocephalic, atraumatic, moist mucous membranes NECK: Supple CARDIOVASCULAR EXAMINATION: S1, S2, no murmurs RESPIRATORY EXAMINATION: Basilar rhonchi, overall diminished air entry. Few scattered crackles. ABDOMINAL EXAMINATION: Soft, nontender, nondistended, positive bowel sounds EXTREMITIES: Bipedal edema. SKIN: No rash NEUROLOGICAL EXAMINATION: Alert and oriented 3, no focal deficits PSYCHIATRIC EXAMINATION: Calm and cooperative LABORATORY DATA, IMAGING STUDIES, MICROBIOLOGY: Please see below. ASSESSMENT AND PLAN: 49-year-old obese male is admitted for acute hypoxemic respiratory failure secondary to Covid pneumonia Acute hypoxemic respiratory failure secondary to Covid pneumonia: Rest or function has been stable and slowly improving over the past few days, remains on OptiFlow, currently on 90% FiO2. We'll titrate as needed. Continue Decadron, Completed Remdisivir and empiric antibiotics. Benzonatate as needed. ASA, Lovenox BID. New CXR bilateral infiltrates varying Symbicort. Mild fluid overload given 1 dose of lasix. Morbid obesity possible sleep apnea never tested. will need sleep study as outpatient. Hypertension noted to have some high Bp readings in hospital will continue to monitor. VS,Fishbone, I+O VS, Fishbone, I+O Laboratory Tests 04/06/20 08:13 Vital Signs Date Time Temp Pulse Resp B/P (MAP) Pulse Ox O2 Delivery O2 Flow Rate FiO2 04/06/20 20:16 89 HVNI-Vapotherm 36.0 90 04/06/20 16:00 97.1 73 20 150/82 (104) I&O- Last 24 Hours up to 6 AM 04/06/20 07:00 Intake Total 1350 ml Output Total 1575 ml Balance -225 ml NAHOMI FRAZIER MD Apr 06, 2020 20:59
[2020-04-06] MEDS: NICOTINE 21MG/24HR 1 EA TRANSDERMAL TD SCH (21:00)
[2020-04-06] MEDS: SODIUM CHLORIDE 0.9% INJ 10 ML SYR IV SCH (22:09)
[2020-04-07] VITALS (9 sets, daily range): BP systolic 140–160; BP diastolic 61–78; O2SAT 86–88
[2020-04-07] MEDS: ALBUTEROL 90 MCG/ACT 8GM HFA INHALER INH SCH ×5 (03:03→20:00)
[2020-04-07 07:49] LABS: BASO % 0.3 % (0.0-1.0); EOS # 0.1 10^3/uL (0.0-0.5); EOS % 0.8 % (0.0-3.0); HEMATOCRIT 44.4 % (42.0-52.0); HEMOGLOBIN 14.1 g/dl (13.5-17.5); LYMPH # 1.9 10^3/uL (1.5-5.0); LYMPH % 14.1 % (24.0-44.0); MEAN CORPUSCULAR HEMOGLOBIN 27.6 pg (27.0-33.0); MEAN CORPUSCULAR HGB CONC 31.8 g/dl (32.0-36.5); MEAN CORPUSCULAR VOLUME 87.1 fl (80.0-96.0); MONO # 0.7 10^3/uL (0.0-0.8); MONO % 5.4 % (0.0-5.0); NEUTROPHILS # 10.6 10^3/uL (1.5-8.5); NEUTROPHILS % 77.9 % (36.0-66.0); PLATELET COUNT, AUTOMATED 453 10^3/uL (150-450); WHITE BLOOD COUNT 13.6 10^3/uL (4.0-10.0)
[2020-04-07] MEDS: SYMBICORT 160/4.5MCG INHALER 6GM INH SCH ×2 (08:39→20:52)
[2020-04-07 08:44] LABS: ALBUMIN 2.6 GM/DL (3.2-5.2); ALT/SGPT 49 U/L (12-78); BILIRUBIN,TOTAL 0.4 MG/DL (0.2-1.0); BLOOD UREA NITROGEN 16 MG/DL (7-18); CALCIUM LEVEL 8.6 MG/DL (8.5-10.1); CARBON DIOXIDE LEVEL 28 MEQ/L (21-32); CHLORIDE LEVEL 103 MEQ/L (98-107); FERRITIN 417 NG/ML (26-388); GLOMERULAR FILTRATION RATE > 60.0 (>56); GLUCOSE, FASTING 115 MG/DL (70-100); MAGNESIUM LEVEL 2.4 MG/DL (1.8-2.4); NT-PRO BNP 40 PG/ML (<125); POTASSIUM SERUM 4.6 MEQ/L (3.5-5.1); SODIUM LEVEL 139 MEQ/L (136-145); TOTAL PROTEIN 6.5 GM/DL (6.4-8.2)
[2020-04-07] MEDS: BENZONATATE 100 MG CAP PO SCH ×3 (09:41→21:01)
[2020-04-07] MEDS: dexameTHASONE 4 MG/ML 1ML VIAL (J1100 PER 1MG) IV SCH (09:41)
[2020-04-07] MEDS: ASPIRIN 81 MG ENTERIC TAB PO SCH (09:41)
[2020-04-07] MEDS ORDERED: ISOVUE-370 76% 100ML VIAL As Ordered ONE (10:13)
[2020-04-07] MEDS ORDERED: ENOXAPARIN 80MG/0.8ML SYRINGE (J1650 PER 10MG) SC SCH ×2 (11:00→23:00)
[2020-04-07 12:07] LABS: BODY FLUID CULTURE Not indicated. (.); LEGIONELLA ANTIGEN URINE Negative (Negative); ORGANISM ID Not indicated. (.); SPECIMEN SOURCE Urine (.); URINE STREP PNEUMONIAE ANTIGEN Negative (Negative)
--- NOTE | 2020-04-07 13:28 | REP ---
INDICATION: COVID+ r/o PE. COMPARISON: None. TECHNIQUE: CT angiogram chest performed following the intravenous administration of 100 cc of Isovue 370. Sagittal and coronal reconstruction images are performed. FINDINGS: Lungs: There are diffuse ground-glass patchy bilateral infiltrates somewhat greater on the right than on the left. Mediastinum: There is a 1.5 cm subcarinal lymph node. Pulmonary arteries: Evaluation for pulmonary emboli is limited due to excessive breathing motion. There are questionable filling defects in the left lower lobe peripheral pulmonary arteries. Jazmín: There is bilateral infrahilar adenopathy with short axis dimension on the right 1.4 cm and left 1.7 cm. Axilla: No adenopathy. Pleura: No effusion. Heart: Not enlarged. Thoracic aorta: No aneurysm or dissection. Upper abdominal structures: Unremarkable. Visualized osseous structures: Unremarkable. IMPRESSION: Evaluation for pulmonary emboli is limited due to excessive breathing motion. Questionable filling defects and pulmonary emboli in the inferior left lower lobe peripheral pulmonary arteries. Diffuse bilateral infiltrates. Mild bilateral hilar and subcarinal adenopathy. <Electronically signed by Daniel Pham > 04/07/20 [id number]
[2020-04-07] MEDS ORDERED: ENOXAPARIN 80MG/0.8ML SYRINGE (J1650 PER 10MG) SC ONE (14:15)
--- NOTE | 2020-04-07 15:24 | IPNPDOC ---
Date Seen The patient was seen on 04/07/20. Progress Note SUBJECTIVE: Patient was seen and examined at the bedside this morning. He has no complaints at this time. He denies any worsened shortness of breath but does state he feels short of breath when getting up and sitting at the edge of the bed. He reports some dry cough and intermittent congestion. Otherwise he has no abdominal pain, nausea, diarrhea or GI upset. He is currently saturating in the low 90s on 15 L and 90% FiO2. He was sent today for CT angiography of the chest and found to have pulmonary embolism. OBJECTIVE PHYSICAL EXAMINATION: VITAL SIGNS: see below GENERAL: alert and oriented, in no apparent distress, pleasant and conversant in full sentences. HEENT: PERRL, EOMI, Oral mucous membranes are moist without lesions. NECK: The patient has no noted JVD. No adenopathy is appreciated. No thyromegaly CHEST/LUNGS: Decreased breath sounds bilaterally, no adventitious breath sounds are appreciated. Frequent coughing with deep breathing. Chest is symmetrical, no subcutaneous air HEART: Regular rate and rhythm. No murmurs, rubs, or gallops are appreciated. Distal pulses are 2+. No carotid bruits appreciated. ABDOMEN: morbidly obese, Soft, nontender, and nondistended. Bowel sounds are positive. No organomegaly is appreciated. No masses are appreciated. There are no peritoneal signs. There is no [place] sign. EXTREMITIES: No peripheral edema. There is no focal long bone tenderness or deformity. SKIN: The patients skin is warm and dry, without rashes or lesions. PSYCHIATRIC: AAO x 3, normal mood/affect NEUROLOGIC: The patient has 5/5 strength to the upper and lower extremities bilaterally. Sensation is intact throughout. Deep tendon reflexes are 2+ in all four extremities. There are no deficits to the cranial nerves. LABORATORY DATA, IMAGING STUDIES, MICROBIOLOGY: Please see below. CTA: FINDINGS: Lungs: There are diffuse ground-glass patchy bilateral infiltrates somewhat greater on the right than on the left. Mediastinum: There is a 1.5 cm subcarinal lymph node. Pulmonary arteries: Evaluation for pulmonary emboli is limited due to excessive breathing motion. There are questionable filling defects in the left lower lobe peripheral pulmonary arteries. Jazmín: There is bilateral infrahilar adenopathy with short axis dimension on the right 1.4 cm and left 1.7 cm. Axilla: No adenopathy. Pleura: No effusion. Heart: Not enlarged. Thoracic aorta: No aneurysm or dissection. Upper abdominal structures: Unremarkable. Visualized osseous structures: Unremarkable. IMPRESSION: Evaluation for pulmonary emboli is limited due to excessive breathing motion. Questionable filling defects and pulmonary emboli in the inferior left lower lobe peripheral pulmonary arteries. Diffuse bilateral infiltrates. Mild bilateral hilar and subcarinal adenopathy. Echocardiogram: None DVT prophylaxis ordered?: Lovenox weight-based dosing ASSESSMENT AND PLAN: This is a 49-year-old obese male with history of hypertension who presented to the ED with worsening shortness of breath, cough, diarrhea found to have COVID-19 pneumonia. PROBLEMS: 1. Acute hypoxic respiratory failure secondary to COVID-19 pneumonia: -Continue dexamethasone, day 7 -Patient completed 5 day course of Remdesivir -Continue albuterol inhaler as needed for shortness of breath -Tessalon Perles for cough -Continue Symbicort inhaler twice daily -Guaifenesin for congestion -Inflammatory markers: Ferritin slightly up to 417, CRP elevated at 10.8, pro calcitonin less than 0.05, fibrinogen up to 682, d-dimer pending for today 2. New pulmonary embolism, likely secondary to hypercoagulable COVID-19 i nfection -Prophylactic dose of Lovenox changed to weight-based treatment dose 3. Superimposed bacterial community-acquired pneumonia: -Patient completed 5 day course of ceftriaxone, azithromycin 4. Fluid overload: -S/p 60mg IV lasix DISPOSITION: pending improvement in oxygenation. VS, I&O, 24H, Fishbone Vital Signs/I&O Vital Signs Date Time Temp Pulse Resp B/P (MAP) Pulse Ox O2 Delivery O2 Flow Rate FiO2 04/07/20 12:36 81 21 147/72 (97) 91 15.0 04/07/20 04:00 97.6 HVNI-Vapotherm 90 I&O- Last 24 Hours up to 6 AM 04/07/20 06:00 Intake Total 1250 ml Output Total 3150 ml Balance -1900 ml Laboratory Data 24H LABS Laboratory Tests 2 04/07/20 07:18: Immature Granulocyte % (Auto) 1.5, Neutrophils (%) (Auto) 77.9H, Lymphocytes (%) (Auto) 14.1L, Monocytes (%) (Auto) 5.4H, Eosinophils (%) (Auto) 0.8, Basophils (%) (Auto) 0.3, Neutrophils # (Auto) 10.6H, Lymphocytes # (Auto) 1.9, Monocytes # (Auto) 0.7, Eosinophils # (Auto) 0.1, Basophils # (Auto) 0.0, Nucleated Red Blood Cells % (auto) 0.0, Fibrinogen 682H, Anion Gap 8, Glomerular Filtration Rate > 60.0, Calcium Level 8.6, Magnesium Level 2.4, Ferritin 417H, Total Bilirubin 0.4, Aspartate Amino Transf (AST/SGOT) 20, Alanine Aminotransferase (ALT/SGPT) 49, Alkaline Phosphatase 52, C-Reactive Protein, Quantitative 10.80H, YT-Lgb-E-Type Natriuretic Peptide 40, Total Protein 6.5, Albumin 2.6L, Albumin/Globulin Ratio 0.7 CBC/BMP Laboratory Tests 04/07/20 07:18 Microbiology Microbiology 04/01/20 Blood Culture - Final, Complete NO GROWTH AFTER 5 DAYS 04/01/20 Blood Culture - Final, Complete NO GROWTH AFTER 5 DAYS GME ATTESTATION GME ATTESTATION My faculty preceptor for this patient encounter was physically present during the encounter and was fully available. All aspects of the patient interview, examination, medical decision making process, and medical care plan development were reviewed and approved by the faculty preceptor. The faculty preceptor is aware and concurs with the plan as stated in the body of this note and will attest to such by his/her cosignature. ATTENDING NOTE I, Slime Clements, have independently examined this patient and performed my own physical exam, as well as reviewed the documentation and edited where necessary. I have discussed in detail with the resident / student the findings and plan of treatment as documented by the resident / student and edited their note. I agree with their findings and treatment plan and have edited their documentation. I will continue to follow the patient during this hospital stay. XAVIER VILLEGAS MD Apr 07, 2020 15:24 SLIME CLEMENTS MD Apr 07, 2020 16:17
[2020-04-07] MEDS: NICOTINE 21MG/24HR 1 EA TRANSDERMAL TD SCH (19:53)
[2020-04-07] MEDS: SODIUM CHLORIDE 0.9% INJ 10 ML SYR IV SCH (21:01)
[2020-04-08] VITALS (10 sets, daily range): BP systolic 134–143; BP diastolic 70–73; O2SAT 89–93
[2020-04-08] MEDS: ALBUTEROL 90 MCG/ACT 8GM HFA INHALER INH SCH ×6 (00:56→20:00)
[2020-04-08 07:53] LABS: BASO # 0.1 10^3/uL (0.0-0.2); BASO % 0.3 % (0.0-1.0); EOS # 0.2 10^3/uL (0.0-0.5); EOS % 0.8 % (0.0-3.0); HEMATOCRIT 44.3 % (42.0-52.0); HEMOGLOBIN 14.2 g/dl (13.5-17.5); LYMPH # 2.5 10^3/uL (1.5-5.0); LYMPH % 14.1 % (24.0-44.0); MEAN CORPUSCULAR HEMOGLOBIN 28.1 pg (27.0-33.0); MEAN CORPUSCULAR HGB CONC 32.1 g/dl (32.0-36.5); MEAN CORPUSCULAR VOLUME 87.7 fl (80.0-96.0); MONO # 1.1 10^3/uL (0.0-0.8); MONO % 5.9 % (0.0-5.0); NEUTROPHILS # 13.8 10^3/uL (1.5-8.5); NEUTROPHILS % 77.2 % (36.0-66.0); PLATELET COUNT, AUTOMATED 482 10^3/uL (150-450); RED BLOOD COUNT 5.05 10^6/uL (4.30-6.10); WHITE BLOOD COUNT 17.9 10^3/uL (4.0-10.0)
[2020-04-08] MEDS: SYMBICORT 160/4.5MCG INHALER 6GM INH SCH ×2 (08:12→20:20)
[2020-04-08 08:24] LABS: ALBUMIN 2.5 GM/DL (3.2-5.2); ALT/SGPT 61 U/L (12-78); BILIRUBIN,TOTAL 0.4 MG/DL (0.2-1.0); BLOOD UREA NITROGEN 18 MG/DL (7-18); C REACTIVE PROTEIN QUANTITATIV 6.01 MG/DL (0.00-0.30); CALCIUM LEVEL 8.5 MG/DL (8.5-10.1); CARBON DIOXIDE LEVEL 24 MEQ/L (21-32); CHLORIDE LEVEL 104 MEQ/L (98-107); CREATININE FOR GFR 0.81 MG/DL (0.70-1.30); FERRITIN 378 NG/ML (26-388); GLOMERULAR FILTRATION RATE > 60.0 (>56); GLUCOSE, FASTING 109 MG/DL (70-100); MAGNESIUM LEVEL 2.2 MG/DL (1.8-2.4); POTASSIUM SERUM 4.7 MEQ/L (3.5-5.1); SODIUM LEVEL 137 MEQ/L (136-145); TOTAL PROTEIN 6.5 GM/DL (6.4-8.2)
[2020-04-08] MEDS: BENZONATATE 100 MG CAP PO SCH ×3 (08:38→19:53)
[2020-04-08] MEDS: dexameTHASONE 4 MG/ML 1ML VIAL (J1100 PER 1MG) IV SCH (08:38)
[2020-04-08] MEDS: ASPIRIN 81 MG ENTERIC TAB PO SCH (08:38)
--- NOTE | 2020-04-08 11:38 | IPNPDOC ---
Date Seen The patient was seen on 04/08/20. Progress Note SUBJECTIVE: Patient was seen and examined at the bedside this morning. He is currently requiring 30L at 100%FiO2 this morning. He tells me he is somewhat anxious as he stares at his pulse oximetry reading most of the day and when he coughs it goes down. I've instructed him to continue using his incentive spirometer and to focus on rest and [place] as best he can. He denies any nausea, vomiting, diarrhea or abdominal pain at this time. He states his breathing feels "about the same." No issues reported from overnight. OBJECTIVE PHYSICAL EXAMINATION: VITAL SIGNS: see below GENERAL: Morbidly obese, laying in right lateral decubitus position,alert and oriented, in no apparent distress, pleasant and conversant in full sentences. HEENT: PERRL, EOMI, Oral mucous membranes are moist without lesions. NECK: The patient has no noted JVD. No adenopathy is appreciated. No thyromegaly CHEST/LUNGS: Decreased breath sounds bilaterally, no adventitious breath sounds are appreciated. Frequent coughing with deep breathing. Chest is symmetrical, no subcutaneous air HEART: Regular rate and rhythm. No murmurs, rubs, or gallops are appreciated. Distal pulses are 2+. No carotid bruits appreciated. ABDOMEN: morbidly obese, Soft, nontender, and nondistended. Bowel sounds are positive. No organomegaly is appreciated. No masses are appreciated. There are no peritoneal signs. There is no [place] sign. EXTREMITIES: No peripheral edema. There is no focal long bone tenderness or deformity. SKIN: The patients skin is warm and dry, without rashes or lesions. PSYCHIATRIC: AAO x 3, normal mood/affect NEUROLOGIC: The patient has 5/5 strength to the upper and lower extremities bilaterally. Sensation is intact throughout. Deep tendon reflexes are 2+ in all four extremities. There are no deficits to the cranial nerves. LABORATORY DATA, IMAGING STUDIES, MICROBIOLOGY: Please see below. CTA: FINDINGS: Lungs: There are diffuse ground-glass patchy bilateral infiltrates somewhat greater on the right than on the left. Mediastinum: There is a 1.5 cm subcarinal lymph node. Pulmonary arteries: Evaluation for pulmonary emboli is limited due to excessive breathing motion. There are questionable filling defects in the left lower lobe peripheral pulmonary arteries. Jazmín: There is bilateral infrahilar adenopathy with short axis dimension on the right 1.4 cm and left 1.7 cm. Axilla: No adenopathy. Pleura: No effusion. Heart: Not enlarged. Thoracic aorta: No aneurysm or dissection. Upper abdominal structures: Unremarkable. Visualized osseous structures: Unremarkable. IMPRESSION: Evaluation for pulmonary emboli is limited due to excessive breathing motion. Questionable filling defects and pulmonary emboli in the inferior left lower lobe peripheral pulmonary arteries. Diffuse bilateral infiltrates. Mild bilateral hilar and subcarinal adenopathy. Echocardiogram: None DVT prophylaxis ordered?: Lovenox weight-based dosing ASSESSMENT AND PLAN: This is a 49-year-old obese male with history of hypertension who presented to the ED with worsening shortness of breath, cough, diarrhea found to have COVID-19 pneumonia. PROBLEMS: 1. Acute hypoxic respiratory failure secondary to COVID-19 pneumonia / possible PE -Continue dexamethasone, day 8 -Patient completed 5 day course of Remdesivir -Continue albuterol inhaler as needed for shortness of breath -Tessalon Perles for cough -Continue Symbicort inhaler twice daily -Guaifenesin for congestion -Inflammatory markers: Ferritin normalized to 378, CRP down to 6.01, d-dimer found to be 2008 up from 549 -WBC up to 17.9 from 13.6 today 2. New pulmonary embolism, likely secondary to hypercoagulable COVID-19 infection -Prophylactic dose of Lovenox changed to weight-based treatment dose 3. Superimposed bacterial community-acquired pneumonia: -Patient completed 5 day course of ceftriaxone, azithromycin 4. Fluid overload: No crackles heard on exam today -S/p 60mg IV lasix DISPOSITION: pending improvement in oxygenation. VS, I&O, 24H, [facility] Vital Signs/I&O Vital Signs Date Time Temp Pulse Resp B/P (MAP) Pulse Ox O2 Delivery O2 Flow Rate FiO2 04/08/20 05:52 89 HVNI-Vapotherm 30.0 100 04/08/20 04:45 97.5 77 20 134/73 (93) I&O- Last 24 Hours up to 6 AM 04/08/20 06:00 Intake Total 360 ml Output Total 1400 ml Balance -1040 ml Laboratory Data 24H LABS Laboratory Tests 2 04/08/20 07:25: Immature Granulocyte % (Auto) 1.7, Neutrophils (%) (Auto) 77.2H, Lymphocytes (%) (Auto) 14.1L, Monocytes (%) (Auto) 5.9H, Eosinophils (%) (Auto) 0.8, Basophils (%) (Auto) 0.3, Neutrophils # (Auto) 13.8H, Lymphocytes # (Auto) 2.5, Monocytes # (Auto) 1.1H, Eosinophils # (Auto) 0.2, Basophils # (Auto) 0.1, Nucleated Red Blood Cells % (auto) 0.0, Fibrinogen 657H, D-Dimer, Quantitative 2008.61H CBC/BMP Laboratory Tests 04/08/20 07:25 Microbiology Microbiology 04/01/20 Blood Culture - Final, Complete NO GROWTH AFTER 5 DAYS 04/01/20 Blood Culture - Final, Complete NO GROWTH AFTER 5 DAYS GME ATTESTATION GME ATTESTATION My faculty preceptor for this patient encounter was physically present during the encounter and was fully available. All aspects of the patient interview, examination, medical decision making process, and medical care plan development were reviewed and approved by the faculty preceptor. The faculty preceptor is aware and concurs with the plan as stated in the body of this note and will attest to such by his/her cosignature. ATTENDING NOTE I, Slime Clements, have independently examined this patient and performed my own physical exam, as well as reviewed the documentation and edited where necessary. I have discussed in detail with the resident / student the findings and plan of treatment as documented by the resident / student and edited their note. I agree with their findings and treatment plan and have edited their documentation. I will continue to follow the patient during this hospital stay. XAVIER VILLEGAS MD Apr 08, 2020 08:37 SLIME CLEMENTS MD Apr 08, 2020 14:13
[2020-04-08] MEDS: ENOXAPARIN 150MG/ML SYRINGE (J1650 PER 10MG) SC SCH ×2 (13:16→23:38)
[2020-04-08] MEDS: SODIUM CHLORIDE 0.9% INJ 10 ML SYR IV SCH (17:21)
[2020-04-08] MEDS: NICOTINE 21MG/24HR 1 EA TRANSDERMAL TD SCH (19:54)
[2020-04-09] VITALS (10 sets, daily range): BP systolic 136–151; BP diastolic 62–76; O2SAT 90–97
[2020-04-09] MEDS: ALBUTEROL 90 MCG/ACT 8GM HFA INHALER INH SCH ×7 (00:27→23:52)
[2020-04-09 07:58] LABS: BASO % 0.2 % (0.0-1.0); EOS # 0.2 10^3/uL (0.0-0.5); EOS % 1.4 % (0.0-3.0); HEMATOCRIT 44.6 % (42.0-52.0); HEMOGLOBIN 14.1 g/dl (13.5-17.5); LYMPH # 2.6 10^3/uL (1.5-5.0); LYMPH % 15.5 % (24.0-44.0); MEAN CORPUSCULAR HEMOGLOBIN 27.7 pg (27.0-33.0); MEAN CORPUSCULAR HGB CONC 31.6 g/dl (32.0-36.5); MEAN CORPUSCULAR VOLUME 87.6 fl (80.0-96.0); MONO % 5.8 % (0.0-5.0); NEUTROPHILS # 12.6 10^3/uL (1.5-8.5); NEUTROPHILS % 75.6 % (36.0-66.0); PLATELET COUNT, AUTOMATED 454 10^3/uL (150-450); RED BLOOD COUNT 5.09 10^6/uL (4.30-6.10); WHITE BLOOD COUNT 16.7 10^3/uL (4.0-10.0)
[2020-04-09 08:17] LABS: D-DIMER QUANT 2602.99 ng/ml (<500)
[2020-04-09 08:26] LABS: ALBUMIN 2.5 GM/DL (3.2-5.2); ALT/SGPT 64 U/L (12-78); BILIRUBIN,TOTAL 0.3 MG/DL (0.2-1.0); BLOOD UREA NITROGEN 15 MG/DL (7-18); C REACTIVE PROTEIN QUANTITATIV 3.29 MG/DL (0.00-0.30); CALCIUM LEVEL 8.6 MG/DL (8.5-10.1); CARBON DIOXIDE LEVEL 26 MEQ/L (21-32); CHLORIDE LEVEL 103 MEQ/L (98-107); FERRITIN 335 NG/ML (26-388); GLOMERULAR FILTRATION RATE > 60.0 (>56); GLUCOSE, FASTING 80 MG/DL (70-100); MAGNESIUM LEVEL 2.1 MG/DL (1.8-2.4); POTASSIUM SERUM 4.8 MEQ/L (3.5-5.1); SODIUM LEVEL 136 MEQ/L (136-145); TOTAL PROTEIN 6.1 GM/DL (6.4-8.2)
[2020-04-09] MEDS: SYMBICORT 160/4.5MCG INHALER 6GM INH SCH ×2 (08:29→19:21)
[2020-04-09] MEDS: dexameTHASONE 4 MG/ML 1ML VIAL (J1100 PER 1MG) IV SCH (09:30)
[2020-04-09] MEDS: ASPIRIN 81 MG ENTERIC TAB PO SCH (09:30)
[2020-04-09] MEDS: BENZONATATE 100 MG CAP PO SCH ×3 (09:30→21:00)
--- NOTE | 2020-04-09 11:32 | IPNPDOC ---
Date Seen The patient was seen on 04/09/20. Progress Note SUBJECTIVE: Patient was seen and examined at the bedside this morning. He is currently requiring 30L at 100% FiO2 this morning when I enter the room that was titrated down to 90% where he sustained oxygen saturation in the low 90s, but while talking to me I had to titrate him back up to 100%. He states he feels well at this time--no change from yesterday. He denies any nausea/vomiting/diarrhea. OBJECTIVE PHYSICAL EXAMINATION: VITAL SIGNS: see below GENERAL: Morbidly obese, laying in right lateral decubitus position,alert and oriented, in no apparent distress, pleasant and conversant in full sentences. HEENT: PERRL, EOMI, Oral mucous membranes are moist without lesions. NECK: The patient has no noted JVD. No adenopathy is appreciated. No thyromegaly CHEST/LUNGS: Decreased breath sounds bilaterally, no adventitious breath sounds are appreciated. Frequent coughing with deep breathing. Chest is symmetrical, no subcutaneous air HEART: Regular rate and rhythm. No murmurs, rubs, or gallops are appreciated. Distal pulses are 2+. No carotid bruits appreciated. ABDOMEN: morbidly obese, Soft, nontender, and nondistended. Bowel sounds are positive. No organomegaly is appreciated. No masses are appreciated. There are no peritoneal signs. There is no Harlan sign. EXTREMITIES: No peripheral edema. There is no focal long bone tenderness or deformity. SKIN: The patients skin is warm and dry, without rashes or lesions. PSYCHIATRIC: AAO x 3, normal mood/affect NEUROLOGIC: The patient has 5/5 strength to the upper and lower extremities bilaterally. Sensation is intact throughout. Deep tendon reflexes are 2+ in all four extremities. There are no deficits to the cranial nerves. LABORATORY DATA, IMAGING STUDIES, MICROBIOLOGY: Please see below. CTA: FINDINGS: Lungs: There are diffuse ground-glass patchy bilateral infiltrates somewhat greater on the right than on the left. Mediastinum: There is a 1.5 cm subcarinal lymph node. Pulmonary arteries: Evaluation for pulmonary emboli is limited due to excessive breathing motion. There are questionable filling defects in the left lower lobe peripheral pulmonary arteries. Jazmín: There is bilateral infrahilar adenopathy with short axis dimension on the right 1.4 cm and left 1.7 cm. Axilla: No adenopathy. Pleura: No effusion. Heart: Not enlarged. Thoracic aorta: No aneurysm or dissection. Upper abdominal structures: Unremarkable. Visualized osseous structures: Unremarkable. IMPRESSION: Evaluation for pulmonary emboli is limited due to excessive breathing motion. Questionable filling defects and pulmonary emboli in the inferior left lower lobe peripheral pulmonary arteries. Diffuse bilateral infiltrates. Mild bilateral hilar and subcarinal adenopathy. Echocardiogram: None DVT prophylaxis ordered?: Lovenox weight-based dosing ASSESSMENT AND PLAN: This is a 49-year-old obese male with history of hypertension who presented to the ED with worsening shortness of breath, cough, diarrhea found to have COVID-19 pneumonia. PROBLEMS: 1. Acute hypoxic respiratory failure secondary to COVID-19 pneumonia / possible PE -Continue dexamethasone, day 9 -Patient completed 5 day course of Remdesivir -Continue albuterol inhaler as needed for shortness of breath -Tessalon Perles for cough -Continue Symbicort inhaler twice daily -Guaifenesin for congestion -Inflammatory markers: Ferritin normalized to 335, CRP down to 3.29, d-dimer slightly up to 2602, pro calcitonin for today pending -WBC up to 17.9 from 13.6 today 2. New pulmonary embolism, likely secondary to hypercoagulable COVID-19 infection -Prophylactic dose of Lovenox changed to weight-based treatment dose, 150 mg twice daily 3. Superimposed bacterial community-acquired pneumonia: -Patient completed 5 day course of ceftriaxone, azithromycin 4. Fluid overload: No crackles heard on exam today -S/p 60mg IV lasix DISPOSITION: pending improvement in oxygenation. VS, I&O, [facility] Vital Signs/I&O Vital Signs Date Time Temp Pulse Resp B/P (MAP) Pulse Ox O2 Delivery O2 Flow Rate FiO2 04/09/20 08:30 90 HVNI-Vapotherm 35.0 100 04/09/20 08:00 96.0 90 20 148/63 (91) I&O- Last 24 Hours up to 6 AM 04/09/20 06:00 Intake Total 960 ml Output Total 1300 ml Balance -340 ml Laboratory Data 24H LABS Laboratory Tests 2 04/09/20 07:02: Immature Granulocyte % (Auto) 1.5, Neutrophils (%) (Auto) 75.6H, Lymphocytes (%) (Auto) 15.5L, Monocytes (%) (Auto) 5.8H, Eosinophils (%) (Auto) 1.4, Basophils (%) (Auto) 0.2, Neutrophils # (Auto) 12.6H, Lymphocytes # (Auto) 2.6, Monocytes # (Auto) 1.0H, Eosinophils # (Auto) 0.2, Basophils # (Auto) 0.0, Nucleated Red Blood Cells % (auto) 0.0, Fibrinogen 581H, D-Dimer, Quantitative 2602.99H, Anion Gap 7L, Glomerular Filtration Rate > 60.0, Calcium Level 8.6, Magnesium Level 2.1, Ferritin 335, Total Bilirubin 0.3, Aspartate Amino Transf (AST/SGOT) 21, Alanine Aminotransferase (ALT/SGPT) 64, Alkaline Phosphatase 54, C-Reactive Protein, Quantitative 3.29H, Total Protein 6.1L, Albumin 2.5L, Albumin/Globulin Ratio 0.7 CBC/BMP Laboratory Tests 04/09/20 07:02 Microbiology Microbiology 04/01/20 Blood Culture - Final, Complete NO GROWTH AFTER 5 DAYS 04/01/20 Blood Culture - Final, Complete NO GROWTH AFTER 5 DAYS GME ATTESTATION GME ATTESTATION My faculty preceptor for this patient encounter was physically present during the encounter and was fully available. All aspects of the patient interview, examination, medical decision making process, and medical care plan development were reviewed and approved by the faculty preceptor. The faculty preceptor is aware and concurs with the plan as stated in the body of this note and will attest to such by his/her cosignature. ATTENDING NOTE I, Slime Clements, have independently examined this patient and performed my own physical exam, as well as reviewed the documentation and edited where necessary. I have discussed in detail with the resident / student the findings and plan of treatment as documented by the resident / student and edited their note. I agree with their findings and treatment plan and have edited their documentation. I will continue to follow the patient during this hospital stay. XAVIER VILLEGAS MD Apr 09, 2020 11:32 SLIME CLEMENTS MD Apr 09, 2020 17:03
[2020-04-09] MEDS: ENOXAPARIN 150MG/ML SYRINGE (J1650 PER 10MG) SC SCH ×2 (12:17→23:05)
[2020-04-09] MEDS: NICOTINE 21MG/24HR 1 EA TRANSDERMAL TD SCH (22:00)
[2020-04-09] MEDS: SODIUM CHLORIDE 0.9% INJ 10 ML SYR IV SCH (23:04)
[2020-04-10] VITALS (9 sets, daily range): BP systolic 132–151; BP diastolic 67–96; O2SAT 82–96
[2020-04-10] MEDS: ALBUTEROL 90 MCG/ACT 8GM HFA INHALER INH SCH ×5 (03:51→19:47)
[2020-04-10 06:31] LABS: BASO % 0.2 % (0.0-1.0); EOS # 0.2 10^3/uL (0.0-0.5); HEMATOCRIT 44.4 % (42.0-52.0); HEMOGLOBIN 14.3 g/dl (13.5-17.5); LYMPH # 2.7 10^3/uL (1.5-5.0); LYMPH % 16.6 % (24.0-44.0); MEAN CORPUSCULAR HEMOGLOBIN 27.7 pg (27.0-33.0); MEAN CORPUSCULAR HGB CONC 32.2 g/dl (32.0-36.5); MONO % 6.2 % (0.0-5.0); NEUTROPHILS # 12.2 10^3/uL (1.5-8.5); NEUTROPHILS % 74.3 % (36.0-66.0); PLATELET COUNT, AUTOMATED 492 10^3/uL (150-450); RED BLOOD COUNT 5.16 10^6/uL (4.30-6.10); WHITE BLOOD COUNT 16.4 10^3/uL (4.0-10.0)
[2020-04-10 06:45] LABS: D-DIMER QUANT 2732.72 ng/ml (<500)
[2020-04-10 07:08] LABS: ALBUMIN 2.5 GM/DL (3.2-5.2); ALT/SGPT 61 U/L (12-78); BILIRUBIN,TOTAL 0.4 MG/DL (0.2-1.0); BLOOD UREA NITROGEN 16 MG/DL (7-18); C REACTIVE PROTEIN QUANTITATIV 3.98 MG/DL (0.00-0.30); CALCIUM LEVEL 8.3 MG/DL (8.5-10.1); CARBON DIOXIDE LEVEL 26 MEQ/L (21-32); CHLORIDE LEVEL 105 MEQ/L (98-107); CREATININE FOR GFR 0.85 MG/DL (0.70-1.30); FERRITIN 320 NG/ML (26-388); GLOMERULAR FILTRATION RATE > 60.0 (>56); GLUCOSE, FASTING 89 MG/DL (70-100); MAGNESIUM LEVEL 2.2 MG/DL (1.8-2.4); POTASSIUM SERUM 4.8 MEQ/L (3.5-5.1); SODIUM LEVEL 139 MEQ/L (136-145); TOTAL PROTEIN 6.6 GM/DL (6.4-8.2)
[2020-04-10] MEDS: SYMBICORT 160/4.5MCG INHALER 6GM INH SCH ×2 (08:08→19:46)
[2020-04-10 09:54] LABS: ABG BASE EXCESS 2.1 (-2.0-2.0); ABG HCO3 25.6 MEQ/L (22.0-26.0); ABG O2 SATURATION 89.4 % (95.0-99.0); ABG PARTIAL PRESSURE CO2 36.5 mmHg (35.0-45.0); ABG PARTIAL PRESSURE O2 55.4 mmHg (75.0-100.0); ABG STANDARD HCO3 26.1 MEQ/L (22.0-26.0); ABG TOTAL CO2 26.7 MEQ/L (22.0-29.0); ABG pH (ARTERIAL) 7.464 UNITS (7.350-7.450)
[2020-04-10] MEDS: dexameTHASONE 4 MG/ML 1ML VIAL (J1100 PER 1MG) IV SCH (10:17)
[2020-04-10] MEDS: ASPIRIN 81 MG ENTERIC TAB PO SCH (10:17)
[2020-04-10] MEDS: BENZONATATE 100 MG CAP PO SCH ×3 (10:17→20:45)
[2020-04-10] MEDS: SODIUM CHLORIDE 0.9% INJ 10 ML SYR IV PRN (10:18)
[2020-04-10] MEDS: ENOXAPARIN 150MG/ML SYRINGE (J1650 PER 10MG) SC SCH ×2 (10:27→22:59)
--- NOTE | 2020-04-10 15:11 | IPNPDOC ---
Date Seen The patient was seen on 04/10/20. Progress Note SUBJECTIVE: Patient was seen and examined at the bedside this morning. He was requiring 40L at 100% FiO2 so he was transferred to the ICU this morning to be placed on CPAP. On CPAP, he has been titrated down to 80% FiO2. This morning he had no complaints and seemed somewhat anxious about his oxygen level. He denied any worsening shortness of breath, dyspnea, cough, nausea/vomiting/diarrhea today. OBJECTIVE PHYSICAL EXAMINATION: VITAL SIGNS: see below GENERAL: Morbidly obese, laying in right lateral decubitus position,alert and oriented, in no apparent distress, pleasant and conversant in full sentences. HEENT: PERRL, EOMI, Oral mucous membranes are moist without lesions. NECK: The patient has no noted JVD. No adenopathy is appreciated. No thyromegaly CHEST/LUNGS: Decreased breath sounds bilaterally, no adventitious breath sounds are appreciated. Frequent coughing with deep breathing. Chest is symmetrical, no subcutaneous air HEART: Regular rate and rhythm. No murmurs, rubs, or gallops are appreciated. Distal pulses are 2+. No carotid bruits appreciated. ABDOMEN: morbidly obese, Soft, nontender, and nondistended. Bowel sounds are positive. No organomegaly is appreciated. No masses are appreciated. There are no peritoneal signs. There is no Cowen sign. EXTREMITIES: No peripheral edema. There is no focal long bone tenderness or deformity. SKIN: The patients skin is warm and dry, without rashes or lesions. PSYCHIATRIC: AAO x 3, normal mood/affect NEUROLOGIC: The patient has 5/5 strength to the upper and lower extremities bilaterally. Sensation is intact throughout. Deep tendon reflexes are 2+ in all four extremities. There are no deficits to the cranial nerves. LABORATORY DATA, IMAGING STUDIES, MICROBIOLOGY: Please see below. Echocardiogram: None DVT prophylaxis ordered?: Lovenox weight-based dosing ASSESSMENT AND PLAN: This is a 49-year-old obese male with history of hypertension who presented to the ED with worsening shortness of breath, cough, diarrhea found to have COVID-19 pneumonia. PROBLEMS: 1. Acute hypoxic respiratory failure secondary to COVID-19 pneumonia / possible PE -Continue dexamethasone, day 10 -Patient completed 5 day course of Remdesivir -Continue albuterol inhaler as needed for shortness of breath -Anderson Perles for cough -Continue Symbicort inhaler twice daily -Guaifenesin for congestion -Inflammatory markers: Ferritin down to 320, CRP 3.98, pro calcitonin is low, d- dimer 2732, fibrinogen 592 -WBC 16.4 today 2. New pulmonary embolism, likely secondary to hypercoagulable COVID-19 infection -Prophylactic dose of Lovenox changed to weight-based treatment dose, 150 mg twice daily 3. Superimposed bacterial community-acquired pneumonia: -Patient completed 5 day course of ceftriaxone, azithromycin 4. Fluid overload: No crackles heard on exam today -S/p 60mg IV lasix DVT prophylaxis: Lovenox weight-based treatment dose, 150 mg twice daily DISPOSITION: pending improvement in oxygenation. VS, I&O, 24H, [facility] Vital Signs/I&O Vital Signs Date Time Temp Pulse Resp B/P (MAP) Pulse Ox O2 Delivery O2 Flow Rate FiO2 04/10/20 08:09 88 HVNI-Vapotherm 40.0 100 04/10/20 04:00 96.0 75 22 151/96 (114) I&O- Last 24 Hours up to 6 AM 04/10/20 06:00 Intake Total 1100 ml Output Total 1800 ml Balance -700 ml Laboratory Data 24H LABS Laboratory Tests 2 04/10/20 05:52: Immature Granulocyte % (Auto) 1.7, Neutrophils (%) (Auto) 74.3H, Lymphocytes (%) (Auto) 16.6L, Monocytes (%) (Auto) 6.2H, Eosinophils (%) (Auto) 1.0, Basophils (%) (Auto) 0.2, Neutrophils # (Auto) 12.2H, Lymphocytes # (Auto) 2.7, Monocytes # (Auto) 1.0H, Eosinophils # (Auto) 0.2, Basophils # (Auto) 0.0, Nucleated Red Blood Cells % (auto) 0.0, Fibrinogen 592H, D-Dimer, Quantitative 2732.72H, Anion Gap 8, Glomerular Filtration Rate > 60.0, Calcium Level 8.3L, Magnesium Level 2.2, Ferritin 320, Total Bilirubin 0.4, Aspartate Amino Transf (AST/SGOT) 21, Alanine Aminotransferase (ALT/SGPT) 61, Alkaline Phosphatase 55, C-Reactive Protein, Quantitative 3.98H, Total Protein 6.6, Albumin 2.5L, Albumin/Globulin Ratio 0.6 CBC/BMP Laboratory Tests 1/16/21 05:52 Microbiology Microbiology 04/01/20 Blood Culture - Final, Complete NO GROWTH AFTER 5 DAYS 04/01/20 Blood Culture - Final, Complete NO GROWTH AFTER 5 DAYS GME ATTESTATION GME ATTESTATION My faculty preceptor for this patient encounter was physically present during the encounter and was fully available. All aspects of the patient interview, examination, medical decision making process, and medical care plan development were reviewed and approved by the faculty preceptor. The faculty preceptor is aware and concurs with the plan as stated in the body of this note and will attest to such by his/her cosignature. ATTENDING NOTE I, Slime Clements, have independently examined this patient and performed my own physical exam, as well as reviewed the documentation and edited where necessary. I have discussed in detail with the resident / student the findings and plan of treatment as documented by the resident / student and edited their note. I agree with their findings and treatment plan and have edited their documentation. I will continue to follow the patient during this hospital stay. XAVIER VILLEGAS MD Apr 10, 2020 08:58 SLIME CLEMENTS MD Apr 10, 2020 16:15
[2020-04-10] MEDS: SODIUM CHLORIDE 0.9% INJ 10 ML SYR IV SCH (20:46)
[2020-04-10] MEDS: NICOTINE 21MG/24HR 1 EA TRANSDERMAL TD SCH (20:50)
[2020-04-11] VITALS (18 sets, daily range): BP systolic 109–175; BP diastolic 51–79; O2SAT 89–95
[2020-04-11] MEDS: ALBUTEROL 90 MCG/ACT 8GM HFA INHALER INH SCH ×6 (00:17→20:00)
[2020-04-11 05:36] LABS: BASO % 0.3 % (0.0-1.0); EOS # 0.1 10^3/uL (0.0-0.5); EOS % 0.8 % (0.0-3.0); HEMOGLOBIN 13.8 g/dl (13.5-17.5); LYMPH # 2.6 10^3/uL (1.5-5.0); LYMPH % 17.2 % (24.0-44.0); MEAN CORPUSCULAR HEMOGLOBIN 26.8 pg (27.0-33.0); MEAN CORPUSCULAR HGB CONC 30.7 g/dl (32.0-36.5); MEAN CORPUSCULAR VOLUME 87.4 fl (80.0-96.0); MONO # 0.9 10^3/uL (0.0-0.8); NEUTROPHILS # 11.4 10^3/uL (1.5-8.5); PLATELET COUNT, AUTOMATED 454 10^3/uL (150-450); RED BLOOD COUNT 5.15 10^6/uL (4.30-6.10); WHITE BLOOD COUNT 15.3 10^3/uL (4.0-10.0)
[2020-04-11 06:07] LABS: ALBUMIN 2.3 GM/DL (3.2-5.2); ALT/SGPT 64 U/L (12-78); BILIRUBIN,TOTAL 0.4 MG/DL (0.2-1.0); BLOOD UREA NITROGEN 18 MG/DL (7-18); C REACTIVE PROTEIN QUANTITATIV 5.86 MG/DL (0.00-0.30); CARBON DIOXIDE LEVEL 27 MEQ/L (21-32); CHLORIDE LEVEL 101 MEQ/L (98-107); CREATININE FOR GFR 0.88 MG/DL (0.70-1.30); FERRITIN 366 NG/ML (26-388); GLOMERULAR FILTRATION RATE > 60.0 (>56); GLUCOSE, FASTING 114 MG/DL (70-100); MAGNESIUM LEVEL 2.2 MG/DL (1.8-2.4); POTASSIUM SERUM 3.9 MEQ/L (3.5-5.1); SODIUM LEVEL 134 MEQ/L (136-145); TOTAL PROTEIN 7.1 GM/DL (6.4-8.2)
[2020-04-11] MEDS: SYMBICORT 160/4.5MCG INHALER 6GM INH SCH ×2 (08:00→20:11)
[2020-04-11] MEDS: BENZONATATE 100 MG CAP PO SCH ×3 (08:31→20:24)
[2020-04-11] MEDS: ASPIRIN 81 MG ENTERIC TAB PO SCH (08:31)
[2020-04-11] MEDS: dexameTHASONE 4 MG/ML 1ML VIAL (J1100 PER 1MG) IV SCH (08:31)
[2020-04-11] MEDS ORDERED: FUROSEMIDE 20MG/2ML VIAL (J1940) IV ONE (09:30)
[2020-04-11] MEDS: ENOXAPARIN 150MG/ML SYRINGE (J1650 PER 10MG) SC SCH ×2 (11:25→23:38)
--- NOTE | 2020-04-11 13:16 | IPNPDOC ---
Text Note Date of Service The patient was seen on 04/11/20. NOTE Subjective: Patient is 49-year-old male with a PMHx of HTN and Obesity who presented to the ER with shortness of breath, cough and diarrhea. Patient repo rted that he was feeling symptoms on 03/24 and had gotten tested on 03/25 and he was found to be COVID19 positive. Patient was admitted to the hospitalist service for further evaluation and treatment. On 04/10, patient was transferred to the ICU for CPAP therapy to help with his oxygenation. Patient was seen and examined at the bedside. Currently patient reports that he feels better while on CPAP device. Denies any chest pain. Reports a mild cough. Denies any nausea, vomiting, abdominal pain, diarrhea, or urinary discomfort. Objective: Vitals (See below) General: Lying in bed,appears comfortable, AAOx3 HEENT: NC, AT, CPAP device is off; currently on VapoTherm CVS: +S1S2 Lungs: Poor inspiratory effort, no appreciable wheezing, rhonchi or rales Abdomen: Soft, ND, NT, Obese Extremities: No appreciable pitting edema, - Calf tenderness Assessment and plan: Acute hypoxic respiratory failure - likely 2/2 COVID-19 pneumonia; and very like ly 2/2 PE - Currently, patient feels better while on CPAP therapy; will attempt to transition back to Vapotherm therapy today - Inflammatory markers relatively the same - c/w Dexamethasone (Day #11) - s/p Remdesivir (5 day course) - s/p Ceftriaxone and Azithromycin (5 day course); PCT remains negative - c/w incentive spirometry and symptomatic control - c/w full anticoagulation with Lovenox therapeutic Possible component of fluid overload - Will provide additional dose of IV Lasix Hypertension - BP well controlled - Currently not on medications Nicotine dependence - c/w Nicotine patch Obesity - BMI 43.9 - Complicating medical care DVT prophylaxis - c/w Lovenox weight-based therapeutic dosing Disposition: - Awaiting clinical improvement Marta FOY, I+O Marta FOY I+O Laboratory Tests 04/11/20 04:51 Vital Signs Date Time Temp Pulse Resp B/P (MAP) Pulse Ox O2 Delivery O2 Flow Rate FiO2 04/11/20 12:01 97.9 80 25 135/65 (88) 91 HVNI-Vapotherm 35.0 100 I&O- Last 24 Hours up to 6 AM 04/11/20 06:00 Intake Total 960 ml Output Total 1775 ml Balance -815 ml ISIDRO CLEMENTS MD Apr 11, 2020 13:16
[2020-04-11] MEDS: SODIUM CHLORIDE 0.9% INJ 10 ML SYR IV SCH (20:27)
[2020-04-11] MEDS: NICOTINE 21MG/24HR 1 EA TRANSDERMAL TD SCH (20:27)
[2020-04-12] VITALS (20 sets, daily range): BP systolic 106–146; BP diastolic 56–86; O2SAT 88–95
[2020-04-12] MEDS: ALBUTEROL 90 MCG/ACT 8GM HFA INHALER INH SCH ×6 (04:08→20:00)
[2020-04-12 04:29] LABS: BASO % 0.1 % (0.0-1.0); EOS # 0.1 10^3/uL (0.0-0.5); EOS % 0.3 % (0.0-3.0); HEMATOCRIT 44.2 % (42.0-52.0); HEMOGLOBIN 13.8 g/dl (13.5-17.5); LYMPH # 2.7 10^3/uL (1.5-5.0); LYMPH % 17.8 % (24.0-44.0); MEAN CORPUSCULAR HEMOGLOBIN 27.5 pg (27.0-33.0); MEAN CORPUSCULAR HGB CONC 31.2 g/dl (32.0-36.5); MEAN CORPUSCULAR VOLUME 88.2 fl (80.0-96.0); MONO % 6.7 % (0.0-5.0); NEUTROPHILS % 73.8 % (36.0-66.0); PLATELET COUNT, AUTOMATED 410 10^3/uL (150-450); RED BLOOD COUNT 5.01 10^6/uL (4.30-6.10)
[2020-04-12 05:06] LABS: ALBUMIN 2.3 GM/DL (3.2-5.2); ALT/SGPT 76 U/L (12-78); BILIRUBIN,TOTAL 0.3 MG/DL (0.2-1.0); BLOOD UREA NITROGEN 20 MG/DL (7-18); CALCIUM LEVEL 8.8 MG/DL (8.5-10.1); CARBON DIOXIDE LEVEL 29 MEQ/L (21-32); CHLORIDE LEVEL 104 MEQ/L (98-107); CREATININE FOR GFR 0.86 MG/DL (0.70-1.30); FERRITIN 375 NG/ML (26-388); GLOMERULAR FILTRATION RATE > 60.0 (>56); GLUCOSE, FASTING 87 MG/DL (70-100); MAGNESIUM LEVEL 2.4 MG/DL (1.8-2.4); POTASSIUM SERUM 4.1 MEQ/L (3.5-5.1); SODIUM LEVEL 137 MEQ/L (136-145); TOTAL PROTEIN 7.1 GM/DL (6.4-8.2)
[2020-04-12] MEDS: ASPIRIN 81 MG ENTERIC TAB PO SCH (08:10)
[2020-04-12] MEDS: BENZONATATE 100 MG CAP PO SCH ×3 (08:11→20:11)
[2020-04-12] MEDS: dexameTHASONE 4 MG/ML 1ML VIAL (J1100 PER 1MG) IV SCH (08:11)
[2020-04-12] MEDS: SYMBICORT 160/4.5MCG INHALER 6GM INH SCH ×2 (08:34→20:49)
[2020-04-12] MEDS ORDERED: FUROSEMIDE 20MG/2ML VIAL (J1940) IV ONE (09:00)
--- NOTE | 2020-04-12 11:24 | IPNPDOC ---
Text Note Date of Service The patient was seen on 04/12/20. NOTE Subjective: Patient is 49-year-old male with a PMHx of HTN and Obesity who presented to the ER with shortness of breath, cough and diarrhea. Patient repo rted that he was feeling symptoms on 03/24 and had gotten tested on 03/25 and he was found to be COVID19 positive. Patient was admitted to the hospitalist service for further evaluation and treatment. On 04/10, patient was transferred to the ICU for CPAP therapy to help with his oxygenation. Patient was seen and examined at the bedside. Patient has had an uneventful evening, was on CPAP tonight. However, will be transitioned Vapotherm therapy throughout the day. He denies any chest pain or palpitations. Reports that his cough is doing better. Has not experience any nausea, abdominal pain, diarrhea, or urinary discomfort. Objective: Vitals (See below) General: Lying in bed, in no acute distress, AAOx3 HEENT: Normocephalic and atraumatic CVS: +S1S2 Lungs: Air entry appears to be fair bilaterally without any auscultated rhonchi, crackles or wheezing Abdomen: Nondistended, nontender, soft and obese Extremities: Lower extremities are free of any pitting edema, - Calf tenderness Assessment and plan: Acute hypoxic respiratory failure - likely 2/2 COVID-19 pneumonia; and very likely 2/2 PE - Was on CPAP at night. We'll transition of Vapotherm throughout the majority of today if he can tolerate it - Inflammatory markers improving - c/w Dexamethasone (Day #12) - s/p Remdesivir (5 day course) - s/p Ceftriaxone and Azithromycin (5 day course); PCT remains negative - c/w incentive spirometry and symptomatic control - c/w full anticoagulation with Lovenox therapeutic Possible component of fluid overload - s/p Lasix 20 IV yesterday; will provide additional dose today - Will continue to monitor renal function Hypertension - BP well controlled - Currently not on medications Nicotine dependence - c/w Nicotine patch Obesity - BMI 43.9 - Complicating medical care DVT prophylaxis - c/w Lovenox weight-based therapeutic dosing Disposition: - Awaiting clinical improvement VS,Marta, I+O VS, [facility]bone, I+O Laboratory Tests 04/12/20 03:43 Vital Signs Date Time Temp Pulse Resp B/P (MAP) Pulse Ox O2 Delivery O2 Flow Rate FiO2 04/12/20 04:08 95 BIPAP/CPAP 80 04/12/20 04:00 97.7 65 36 119/65 (83) 04/11/20 18:01 30.0 I&O- Last 24 Hours up to 6 AM 04/12/20 06:00 Intake Total 2280 ml Output Total 1500 ml Balance 780 ml ISIDRO CLEMENTS MD Apr 12, 2020 11:24
[2020-04-12] MEDS: ENOXAPARIN 150MG/ML SYRINGE (J1650 PER 10MG) SC SCH (13:12)
[2020-04-12] MEDS: SODIUM CHLORIDE 0.9% INJ 10 ML SYR IV SCH (19:30)
[2020-04-12] MEDS: NICOTINE 21MG/24HR 1 EA TRANSDERMAL TD SCH (20:12)
[2020-04-13] VITALS (12 sets, daily range): BP systolic 112–148; BP diastolic 55–74; O2SAT 90–97
[2020-04-13] MEDS: ALBUTEROL 90 MCG/ACT 8GM HFA INHALER INH SCH ×7 (00:10→23:51)
[2020-04-13] MEDS: ENOXAPARIN 150MG/ML SYRINGE (J1650 PER 10MG) SC SCH ×3 (00:43→21:59)
[2020-04-13 05:10] LABS: BASO % 0.2 % (0.0-1.0); EOS # 0.1 10^3/uL (0.0-0.5); EOS % 0.5 % (0.0-3.0); HEMATOCRIT 43.4 % (42.0-52.0); HEMOGLOBIN 13.9 g/dl (13.5-17.5); LYMPH # 3.1 10^3/uL (1.5-5.0); LYMPH % 17.1 % (24.0-44.0); MEAN CORPUSCULAR HEMOGLOBIN 27.8 pg (27.0-33.0); MEAN CORPUSCULAR VOLUME 86.8 fl (80.0-96.0); MONO % 5.2 % (0.0-5.0); NEUTROPHILS # 13.9 10^3/uL (1.5-8.5); PLATELET COUNT, AUTOMATED 415 10^3/uL (150-450); WHITE BLOOD COUNT 18.3 10^3/uL (4.0-10.0)
[2020-04-13 05:33] LABS: ALBUMIN 2.4 GM/DL (3.2-5.2); ALT/SGPT 78 U/L (12-78); BILIRUBIN,TOTAL 0.3 MG/DL (0.2-1.0); BLOOD UREA NITROGEN 18 MG/DL (7-18); C REACTIVE PROTEIN QUANTITATIV 2.69 MG/DL (0.00-0.30); CALCIUM LEVEL 9.2 MG/DL (8.5-10.1); CARBON DIOXIDE LEVEL 27 MEQ/L (21-32); CHLORIDE LEVEL 102 MEQ/L (98-107); CREATININE FOR GFR 0.85 MG/DL (0.70-1.30); FERRITIN 382 NG/ML (26-388); GLOMERULAR FILTRATION RATE > 60.0 (>56); GLUCOSE, FASTING 88 MG/DL (70-100); MAGNESIUM LEVEL 2.2 MG/DL (1.8-2.4); SODIUM LEVEL 136 MEQ/L (136-145); TOTAL PROTEIN 7.1 GM/DL (6.4-8.2)
[2020-04-13] MEDS: ASPIRIN 81 MG ENTERIC TAB PO SCH (08:02)
[2020-04-13] MEDS: BENZONATATE 100 MG CAP PO SCH ×3 (08:02→20:27)
[2020-04-13] MEDS: dexameTHASONE 4 MG/ML 1ML VIAL (J1100 PER 1MG) IV SCH (08:02)
[2020-04-13] MEDS: SYMBICORT 160/4.5MCG INHALER 6GM INH SCH ×2 (09:04→19:57)
--- NOTE | 2020-04-13 11:38 | IPNPDOC ---
Date Seen The patient was seen on 04/13/20. Progress Note SUBJECTIVE: 49-year-old male with a PMHx of HTN and Obesity who presented to the ER with shortness of breath, cough and diarrhea. Patient reported that he was feeling symptoms on 03/24 and had gotten tested on 03/25 and he was found to be COVID19 positive. Upgraded to ICU for CPAP therapy. Seen patient at bedside, d/w RN. Doing well. Tolerating CPAP at night. Presently on vapotherm 80% on 30 LPM. has not physical complaints, denies CP, palpitations, SOB, n/v/d. Having appropriate urinary voiding and BMs. OBJECTIVE PHYSICAL EXAMINATION: VITAL SIGNS: please see below General: NAD, comfortable HEENT: PERRLA, EOMI, sclerae clear Neck: supple, normal ROM, no JVD Respiratory: lungs CTAB, no wheeze, no rales, no crackles CVS: RRR, normal S1, S2, no murmurs Abdo: soft, no masses, no hepatosplenomegaly, BS+, no rebound tenderness Extremities: no edema, pulses 2+ MSK: no joint deformities, normal ROM Neuro: no focal neuro deficits, moving all 4 extremities, CN2-12 intact. Stre ngth 5/5 in all 4 extremities. No nystagmus. Psych: calm, cooperative, AAO x 3 LABORATORY DATA, IMAGING STUDIES, MICROBIOLOGY: Please see below. CTA/PE (04/12/20): IMPRESSION: Evaluation for pulmonary emboli is limited due to excessive breathing motion. Questionable filling defects and pulmonary emboli in the inferior left lower lobe peripheral pulmonary arteries. Diffuse bilateral infiltrates. DVT prophylaxis ordered?: Full dose therapeutic lovenox 1 mg/kg q12h ASSESSMENT AND PLAN: Acute hypoxic respiratory failure - likely 2/2 COVID-19 pneumonia; and very like ly 2/2 PE - Tolerated CPAP overnight. Vapotherm during day - Inflammatory markers improving - c/w Dexamethasone (Day #13) - s/p Remdesivir (5 day course) - s/p Ceftriaxone and Azithromycin (5 day course); PCT remains negative - c/w incentive spirometry and symptomatic control - c/w full anticoagulation with Lovenox therapeutic - CTA very suspicious for PE Possible component of fluid overload - s/p Lasix 20 IV 04/11, 04/12. Will hold today - Will continue to monitor renal function Hypertension - BP well controlled - Currently not on medications Nicotine dependence - c/w Nicotine patch Obesity - BMI 43.9 - Complicating medical care DVT prophylaxis - c/w Lovenox weight-based therapeutic dosing Disposition: - Awaiting clinical improvement VS, I&O, 24H, [facility] Vital Signs/I&O Vital Signs Date Time Temp Pulse Resp B/P (MAP) Pulse Ox O2 Delivery O2 Flow Rate FiO2 04/13/20 09:05 91 HVNI-Vapotherm 30.0 80 04/13/20 09:00 75 24 04/13/20 08:00 97.9 115/56 (75) I&O- Last 24 Hours up to 6 AM0 04/13/20 05:59 Intake Total 1640 ml Output Total 2100 ml Balance -460 ml Laboratory Data 24H LABS Laboratory Tests 2 04/13/20 04:07: Immature Granulocyte % (Auto) 1.0, Neutrophils (%) (Auto) 76.0H, Lymphocytes (%) (Auto) 17.1L, Monocytes (%) (Auto) 5.2H, Eosinophils (%) (Auto) 0.5, Basophils (%) (Auto) 0.2, Neutrophils # (Auto) 13.9H, Lymphocytes # (Auto) 3.1, Monocytes # (Auto) 1.0H, Eosinophils # (Auto) 0.1, Basophils # (Auto) 0.0, Nucleated Red Blood Cells % (auto) 0.0, D-Dimer, Quantitative 930.46H, Anion Gap 7L, Glomerular Filtration Rate > 60.0, Calcium Level 9.2, Magnesium Level 2.2, Ferritin 382, Total Bilirubin 0.3, Aspartate Amino Transf (AST/SGOT) 18, Alanine Aminotransferase (ALT/SGPT) 78, Alkaline Phosphatase 54, C-Reactive Protein, Quantitative 2.69H, Total Protein 7.1, Albumin 2.4L, Albumin/Globulin Ratio 0.5 CBC/BMP Laboratory Tests 04/13/20 04:07 CAROLEE PATRICK MD Apr 13, 2020 11:38
[2020-04-13] MEDS: NICOTINE 21MG/24HR 1 EA TRANSDERMAL TD SCH (20:27)
[2020-04-13] MEDS: SODIUM CHLORIDE 0.9% INJ 10 ML SYR IV SCH (20:27)
[2020-04-14] VITALS (9 sets, daily range): BP systolic 108–130; BP diastolic 55–76; O2SAT 89–91
[2020-04-14] MEDS: ALBUTEROL 90 MCG/ACT 8GM HFA INHALER INH SCH ×5 (04:00→20:28)
[2020-04-14] MEDS: SYMBICORT 160/4.5MCG INHALER 6GM INH SCH ×2 (08:00→20:29)
[2020-04-14] MEDS: BENZONATATE 100 MG CAP PO SCH ×3 (08:57→20:09)
[2020-04-14] MEDS: ASPIRIN 81 MG ENTERIC TAB PO SCH (08:57)
[2020-04-14] MEDS: dexameTHASONE 4 MG/ML 1ML VIAL (J1100 PER 1MG) IV SCH (08:57)
--- NOTE | 2020-04-14 08:59 | IPNPDOC ---
Date Seen The patient was seen on 04/14/20. Progress Note UBJECTIVE: 49-year-old male with a PMHx of HTN and Obesity who presented to the ER with shortness of breath, cough and diarrhea. Patient repo rted that he was feeling symptoms on 03/24 and had gotten tested on 03/25 and he was found to be COVID19 positive. Upgraded to ICU for CPAP therapy. Seen patient at bedside, d/w RN. Doing well. Did not require CPAP overnight. Presently on vapotherm 80% at 25 LPM. Has a cough, productive of clear sputum. Afebrile overnight. Denies CP, palpitations, SOB, n/v/d. Having appropriate u rinary voiding and BMs. OBJECTIVE PHYSICAL EXAMINATION: VITAL SIGNS: please see below General: NAD, comfortable HEENT: PERRLA, EOMI, sclerae clear Neck: supple, normal ROM, no JVD Respiratory: lungs CTAB, no wheeze, no rales, no crackles CVS: RRR, normal S1, S2, no murmurs Abdo: soft, no masses, no hepatosplenomegaly, BS+, no rebound tenderness Extremities: no edema, pulses 2+ MSK: no joint deformities, normal ROM Neuro: no focal neuro deficits, moving all 4 extremities, CN2-12 intact. Strength 5/5 in all 4 extremities. No nystagmus. Psych: calm, cooperative, AAO x 3 LABORATORY DATA, IMAGING STUDIES, MICROBIOLOGY: Please see below. CTA/PE (04/12/20): IMPRESSION: Evaluation for pulmonary emboli is limited due to excessive breathing motion. Questionable filling defects and pulmonary emboli in the inferior left lower lobe peripheral pulmonary arteries. Diffuse bilateral infiltrates. DVT prophylaxis ordered?: Full dose therapeutic lovenox 1 mg/kg q12h ASSESSMENT AND PLAN: Acute hypoxic respiratory failure - likely 2/2 COVID-19 pneumonia; and very likely 2/2 PE - Did not require CPAP overnnight - Vapotherm 25 LPM at 80% FiO2, improved from yesterday (30 LPM at 80%). - Inflammatory markers improving - c/w Dexamethasone (Day #14) - s/p Remdesivir (5 day course) - s/p Ceftriaxone and Azithromycin (5 day course); PCT remains negative - c/w incentive spirometry and symptomatic control - Acapella device - c/w full anticoagulation with Lovenox therapeutic - CTA very suspicious for PE Possible component of fluid overload - s/p Lasix 20 IV 04/11, 04/12. Give dose lasix on 04/14/20 - Will continue to monitor renal function Hypertension - BP well controlled - Currently not on medications Nicotine dependence - c/w Nicotine patch Obesity - BMI 43.9 - Complicating medical care DVT prophylaxis - c/w Lovenox weight-based therapeutic dosing Disposition: - will downgrade to 4main PCU status as patient did not require CPAP overnight. VS, I&O, 24H, [facility] Vital Signs/I&O Vital Signs Date Time Temp Pulse Resp B/P (MAP) Pulse Ox O2 Delivery O2 Flow Rate FiO2 04/14/20 04:00 91 HVNI-Vapotherm 25.0 80 04/14/20 04:00 97.0 61 22 128/76 (93) I&O- Last 24 Hours up to 6 AM 04/14/20 06:00 Intake Total 1440 ml Output Total 1900 ml Balance -460 ml Laboratory Data 24H LABS Laboratory Tests 2 04/14/20 04:53: D-Dimer, Quantitative 763.12H CAROLEE PATRICK MD Apr 14, 2020 08:59
[2020-04-14] MEDS ORDERED: FUROSEMIDE 20MG/2ML VIAL (J1940) IV ONE (09:00)
[2020-04-14] MEDS: ENOXAPARIN 150MG/ML SYRINGE (J1650 PER 10MG) SC SCH ×2 (11:15→22:44)
[2020-04-14] MEDS: SODIUM CHLORIDE 0.9% INJ 10 ML SYR IV SCH (16:48)
[2020-04-14] MEDS: NICOTINE 21MG/24HR 1 EA TRANSDERMAL TD SCH (20:55)
[2020-04-15] VITALS (8 sets, daily range): BP systolic 114–133; BP diastolic 55–72; O2SAT 89–90
[2020-04-15] MEDS: ALBUTEROL 90 MCG/ACT 8GM HFA INHALER INH SCH ×7 (04:00→23:46)
[2020-04-15] MEDS: SYMBICORT 160/4.5MCG INHALER 6GM INH SCH ×2 (07:57→20:34)
[2020-04-15 08:01] LABS: INR 1.06
[2020-04-15 08:02] LABS: PARTIAL THROMBOPLASTIN TIME 43.9 SECONDS (24.2-38.5)
[2020-04-15 08:19] LABS: ALBUMIN 2.7 GM/DL (3.2-5.2); ALT/SGPT 71 U/L (12-78); BILIRUBIN,DIRECT < 0.1 MG/DL (0.0-0.2); BILIRUBIN,TOTAL 0.3 MG/DL (0.2-1.0); CPK CREATINE PHOSPHOKINASE 46 U/L (39-308); FERRITIN 430 NG/ML (26-388); LDH LACTATE DEHYDROGENASE 370 U/L (87-241); NT-PRO BNP 35 PG/ML (<125); TOTAL PROTEIN 6.7 GM/DL (6.4-8.2); TROPONIN I < 0.02 NG/ML (< 0.10)
[2020-04-15] MEDS: ASPIRIN 81 MG ENTERIC TAB PO SCH (09:52)
[2020-04-15] MEDS: ENOXAPARIN 150MG/ML SYRINGE (J1650 PER 10MG) SC SCH ×2 (09:52→23:03)
[2020-04-15] MEDS: BENZONATATE 100 MG CAP PO SCH ×3 (09:52→20:48)
[2020-04-15] MEDS: dexameTHASONE 4 MG/ML 1ML VIAL (J1100 PER 1MG) IV SCH (09:53)
--- NOTE | 2020-04-15 11:16 | IPNPDOC ---
Date Seen The patient was seen on 04/15/20. Progress Note SUBJECTIVE: 49-year-old male with a PMHx of HTN and Obesity who presented to the ER with shortness of breath, cough and diarrhea. Patient rep orted that he was feeling symptoms on 03/24 and had gotten tested on 03/25 and he was found to be COVID19 positive. Upgraded to ICU for CPAP therapy, which he tolerated well. Downgraded back to 4[facility] PCU oon 04/14/20. Seen patient at bedside, d/w RN. Doing well. Presently on vapotherm 70% at 25 LPM whis reduced from FiO2 at 80% on 04/14/20. Has a cough, productive of clear sputum. Afebrile overnight. Denies CP, palpitations, SOB, n/v/d. Having appropriate urinary voiding and BMs. OBJECTIVE PHYSICAL EXAMINATION: VITAL SIGNS: please see below General: NAD, comfortable HEENT: PERRLA, EOMI, sclerae clear Neck: supple, normal ROM, no JVD Respiratory: lungs CTAB, no wheeze, no rales, no crackles CVS: RRR, normal S1, S2, no murmurs Abdo: soft, no masses, no hepatosplenomegaly, BS+, no rebound tenderness Extremities: no edema, pulses 2+ MSK: no joint deformities, normal ROM Neuro: no focal neuro deficits, moving all 4 extremities, CN2-12 intact. Strength 5/5 in all 4 extremities. No nystagmus. Psych: calm, cooperative, AAO x 3 LABORATORY DATA, IMAGING STUDIES, MICROBIOLOGY: Please see below. CTA/PE (04/12/20): IMPRESSION: Evaluation for pulmonary emboli is limited due to excessive breathing motion. Questionable filling defects and pulmonary emboli in the inferior left lower lobe peripheral pulmonary arteries. Diffuse bilateral infiltrates. DVT prophylaxis ordered?: Full dose therapeutic lovenox 1 mg/kg q12h ASSESSMENT AND PLAN: Acute hypoxic respiratory failure - likely 2/2 COVID-19 pneumonia; and very likely 2/2 PE - Did not require CPAP overnnight - Vapotherm 25 LPM at 80% FiO2, improved from yesterday (30 LPM at 80%). - Inflammatory markers improving - c/w Dexamethasone (Day #15) - s/p Remdesivir (5 day course) - s/p Ceftriaxone and Azithromycin (5 day course); PCT remains negative - c/w incentive spirometry and symptomatic control - Acapella device - c/w full anticoagulation with Lovenox therapeutic - CTA very suspicious for PE Possible component of fluid overload - s/p Lasix 20 IV 04/11, 04/12. Give dose lasix on 04/14/20 - Will continue to monitor renal function Hypertension - BP well controlled - Currently not on medications Nicotine dependence - c/w Nicotine patch Obesity - BMI 43.9 - Complicating medical care DVT prophylaxis - c/w Lovenox weight-based therapeutic dosing Disposition: - pending clinical improvement VS, I&O, 24H, Fishbone Vital Signs/I&O Vital Signs Date Time Temp Pulse Resp B/P (MAP) Pulse Ox O2 Delivery O2 Flow Rate FiO2 04/15/20 11:12 90 HVNI-Vapotherm 20.0 75 04/15/20 08:00 96.6 88 18 114/55 (74) I&O- Last 24 Hours up to 6 AM 04/15/20 06:00 Intake Total 1320 ml Output Total 1300 ml Balance 20 ml Laboratory Data 24H LABS Laboratory Tests 2 04/15/20 05:37: Prothrombin Time 14.0, Prothromb Time International Ratio 1.06, Activated Partial Thromboplast Time 43.9H, Fibrinogen 776H, Ferritin 430H, Total Bilirubin 0.3, Direct Bilirubin < 0.1, Aspartate Amino Transf (AST/SGOT) 22, Alanine Aminotransferase (ALT/SGPT) 71, Alkaline Phosphatase 56, Lactate Dehydrogenase 370H, Total Creatine Kinase 46, Troponin I < 0.02, LH-Qod-X-Type Natriuretic Peptide 35, Total Protein 6.7, Albumin 2.7L, Albumin/Globulin Ratio 0.7, Procalcitonin 0.07 CAROLEE PATRICK MD Apr 15, 2020 11:16
[2020-04-15 11:57] LABS: BASO % 0.2 % (0.0-1.0); EOS # 0.1 10^3/uL (0.0-0.5); EOS % 0.5 % (0.0-3.0); HEMATOCRIT 43.9 % (42.0-52.0); HEMOGLOBIN 13.7 g/dl (13.5-17.5); LYMPH # 1.7 10^3/uL (1.5-5.0); MEAN CORPUSCULAR HEMOGLOBIN 27.2 pg (27.0-33.0); MEAN CORPUSCULAR HGB CONC 31.2 g/dl (32.0-36.5); MEAN CORPUSCULAR VOLUME 87.3 fl (80.0-96.0); MONO # 0.9 10^3/uL (0.0-0.8); NEUTROPHILS # 14.4 10^3/uL (1.5-8.5); NEUTROPHILS % 83.5 % (36.0-66.0); PLATELET COUNT, AUTOMATED 383 10^3/uL (150-450); RED BLOOD COUNT 5.03 10^6/uL (4.30-6.10); WHITE BLOOD COUNT 17.2 10^3/uL (4.0-10.0)
[2020-04-15 12:41] LABS: BLOOD UREA NITROGEN 18 MG/DL (7-18); CALCIUM LEVEL 9.1 MG/DL (8.5-10.1); CARBON DIOXIDE LEVEL 28 MEQ/L (21-32); CHLORIDE LEVEL 100 MEQ/L (98-107); CREATININE FOR GFR 1.03 MG/DL (0.70-1.30); GLOMERULAR FILTRATION RATE > 60.0 (>56); GLUCOSE, FASTING 146 MG/DL (70-100); POTASSIUM SERUM 4.3 MEQ/L (3.5-5.1); SODIUM LEVEL 134 MEQ/L (136-145)
[2020-04-15] MEDS: SODIUM CHLORIDE 0.9% INJ 10 ML SYR IV SCH (20:48)
[2020-04-15] MEDS: NICOTINE 21MG/24HR 1 EA TRANSDERMAL TD SCH (20:49)
[2020-04-16] VITALS (8 sets, daily range): BP systolic 109–140; BP diastolic 58–89; O2SAT 88
[2020-04-16] MEDS: ALBUTEROL 90 MCG/ACT 8GM HFA INHALER INH SCH ×6 (03:06→23:19)
[2020-04-16 06:56] LABS: INR 1.04; PROTHROMBIN TIME 13.8 SECONDS (12.5-14.3)
[2020-04-16 06:57] LABS: PARTIAL THROMBOPLASTIN TIME 48.1 SECONDS (24.2-38.5)
[2020-04-16 07:09] LABS: ALBUMIN 2.6 GM/DL (3.2-5.2); ALT/SGPT 74 U/L (12-78); BILIRUBIN,DIRECT < 0.1 MG/DL (0.0-0.2); BILIRUBIN,TOTAL 0.2 MG/DL (0.2-1.0); CPK CREATINE PHOSPHOKINASE 33 U/L (39-308); FERRITIN 395 NG/ML (26-388); LDH LACTATE DEHYDROGENASE 302 U/L (87-241); NT-PRO BNP 26 PG/ML (<125); TOTAL PROTEIN 6.5 GM/DL (6.4-8.2); TROPONIN I < 0.02 NG/ML (< 0.10)
[2020-04-16] MEDS: SYMBICORT 160/4.5MCG INHALER 6GM INH SCH ×2 (07:20→19:48)
[2020-04-16] MEDS: ASPIRIN 81 MG ENTERIC TAB PO SCH (09:08)
[2020-04-16] MEDS: ENOXAPARIN 150MG/ML SYRINGE (J1650 PER 10MG) SC SCH ×2 (09:08→22:51)
[2020-04-16] MEDS: dexameTHASONE 4 MG/ML 1ML VIAL (J1100 PER 1MG) IV SCH (09:08)
[2020-04-16] MEDS: BENZONATATE 100 MG CAP PO SCH ×3 (09:08→20:39)
--- NOTE | 2020-04-16 13:53 | IPNPDOC ---
Date Seen The patient was seen on 04/16/20. Progress Note SUBJECTIVE: 49-year-old male with a PMHx of HTN and Obesity who presented to the ER with shortness of breath, cough and diarrhea. Patient rep orted that he was feeling symptoms on 03/24 and had gotten tested on 03/25 and he was found to be COVID19 positive. Upgraded to ICU for CPAP therapy, which he tolerated well. Downgraded back to [facility] PCU oon 04/14/20. Seen patient at bedside, d/w RN. Doing well. Presently on vapotherm 70% at 25 LPM whis reduced from FiO2 at 80% on 04/14/20. Has a cough, productive of clear sputum. Afebrile overnight. Denies CP, palpitations, SOB, n/v/d. Having appropriate urinary voiding and BMs. OBJECTIVE PHYSICAL EXAMINATION: VITAL SIGNS: please see below General: NAD, comfortable HEENT: PERRLA, EOMI, sclerae clear Neck: supple, normal ROM, no JVD Respiratory: lungs CTAB, no wheeze, no rales, no crackles CVS: RRR, normal S1, S2, no murmurs Abdo: soft, no masses, no hepatosplenomegaly, BS+, no rebound tenderness Extremities: no edema, pulses 2+ MSK: no joint deformities, normal ROM Neuro: no focal neuro deficits, moving all 4 extremities, CN2-12 intact. Strength 5/5 in all 4 extremities. No nystagmus. Psych: calm, cooperative, AAO x 3 LABORATORY DATA, IMAGING STUDIES, MICROBIOLOGY: Please see below. CTA/PE (04/12/20): IMPRESSION: Evaluation for pulmonary emboli is limited due to excessive breathing motion. Questionable filling defects and pulmonary emboli in the inferior left lower lobe peripheral pulmonary arteries. Diffuse bilateral infiltrates. DVT prophylaxis ordered?: Full dose therapeutic lovenox 1 mg/kg q12h ASSESSMENT AND PLAN: Acute hypoxic respiratory failure - likely 2/2 COVID-19 pneumonia; and very likely 2/2 PE - Did not require CPAP overnnight - Vapotherm 25 LPM at 70% FiO2, improved from yesterday (25 LPM at 80% FiO2). - Inflammatory markers improving - completed 15 days of dexamethasone. Taper down with prednisone. - s/p Remdesivir (5 day course) - s/p Ceftriaxone and Azithromycin (5 day course); PCT remains negative - c/w incentive spirometry and symptomatic control - Acapella device - c/w full anticoagulation with Lovenox therapeutic - CTA very suspicious for PE Possible component of fluid overload - s/p Lasix 20 IV 04/11, 04/12, 04/14 - Will continue to monitor renal function, remains wnl - give another dose lasix 04/16/20 Hypertension - BP well controlled - Currently not on medications Nicotine dependence - c/w Nicotine patch Obesity - BMI 43.9 - Complicating medical care DVT prophylaxis - c/w Lovenox weight-based therapeutic dosing Disposition: - pending clinical improvement VS, I&O, 24H, Fishbone Vital Signs/I&O Vital Signs Date Time Temp Pulse Resp B/P (MAP) Pulse Ox O2 Delivery O2 Flow Rate FiO2 04/16/20 12:10 97.9 92 22 118/89 (99) 90 HVNI-Vapotherm 25.0 70 I&O- Last 24 Hours up to 6 AM 04/16/20 05:59 Intake Total 1380 ml Output Total 900 ml Balance 480 ml Laboratory Data 24H LABS Laboratory Tests 2 04/16/20 05:43: Prothrombin Time 13.8, Prothromb Time International Ratio 1.04, Activated Partial Thromboplast Time 48.1H, Fibrinogen 776H, Ferritin 395H, Total Bilirubin 0.2, Direct Bilirubin < 0.1, Aspartate Amino Transf (AST/SGOT) 19, Alanine Aminotransferase (ALT/SGPT) 74, Alkaline Phosphatase 54, Lactate Dehydrogenase 302H, Total Creatine Kinase 33L, Troponin I < 0.02, KJ-Vmw-Z-Type Natriuretic Peptide 26, Total Protein 6.5, Albumin 2.6L, Albumin/Globulin Ratio 0.7, Procalcitonin 0.06 CAROLEE PATRICK MD Apr 16, 2020 13:53
[2020-04-16] MEDS ORDERED: FUROSEMIDE 20MG/2ML VIAL (J1940) IV ONE (14:00)
[2020-04-16] MEDS: SODIUM CHLORIDE 0.9% INJ 10 ML SYR IV PRN (14:55)
[2020-04-16] MEDS: SODIUM CHLORIDE 0.9% INJ 10 ML SYR IV SCH (20:40)
[2020-04-16] MEDS: NICOTINE 21MG/24HR 1 EA TRANSDERMAL TD SCH (21:00)
[2020-04-17] MEDS: ALBUTEROL 90 MCG/ACT 8GM HFA INHALER INH SCH ×5 (02:41→19:45)
[2020-04-17 04:30] VITALS: BP 127/69
[2020-04-17 06:55] LABS: BASO % 0.3 % (0.0-1.0); EOS # 0.1 10^3/uL (0.0-0.5); EOS % 0.5 % (0.0-3.0); HEMATOCRIT 39.5 % (42.0-52.0); HEMOGLOBIN 12.4 g/dl (13.5-17.5); LYMPH # 3.5 10^3/uL (1.5-5.0); LYMPH % 22.9 % (24.0-44.0); MEAN CORPUSCULAR HEMOGLOBIN 27.3 pg (27.0-33.0); MEAN CORPUSCULAR HGB CONC 31.4 g/dl (32.0-36.5); MEAN CORPUSCULAR VOLUME 86.8 fl (80.0-96.0); MONO % 6.7 % (0.0-5.0); NEUTROPHILS # 10.5 10^3/uL (1.5-8.5); NEUTROPHILS % 68.9 % (36.0-66.0); PLATELET COUNT, AUTOMATED 313 10^3/uL (150-450); RED BLOOD COUNT 4.55 10^6/uL (4.30-6.10); WHITE BLOOD COUNT 15.3 10^3/uL (4.0-10.0)
[2020-04-17 07:04] LABS: INR 1.01; PROTHROMBIN TIME 13.5 SECONDS (12.5-14.3)
[2020-04-17 07:05] LABS: PARTIAL THROMBOPLASTIN TIME 49.4 SECONDS (24.2-38.5)
[2020-04-17 07:33] LABS: ALBUMIN 2.5 GM/DL (3.2-5.2); ALT/SGPT 71 U/L (12-78); BILIRUBIN,DIRECT 0.1 MG/DL (0.0-0.2); BILIRUBIN,TOTAL 0.3 MG/DL (0.2-1.0); BLOOD UREA NITROGEN 20 MG/DL (7-18); CALCIUM LEVEL 8.8 MG/DL (8.5-10.1); CARBON DIOXIDE LEVEL 28 MEQ/L (21-32); CHLORIDE LEVEL 103 MEQ/L (98-107); CPK CREATINE PHOSPHOKINASE 35 U/L (39-308); CREATININE FOR GFR 0.94 MG/DL (0.70-1.30); FERRITIN 370 NG/ML (26-388); GLOMERULAR FILTRATION RATE > 60.0 (>56); GLUCOSE, FASTING 79 MG/DL (70-100); LDH LACTATE DEHYDROGENASE 279 U/L (87-241); MAGNESIUM LEVEL 2.1 MG/DL (1.8-2.4); NT-PRO BNP 24 PG/ML (<125); POTASSIUM SERUM 4.1 MEQ/L (3.5-5.1); SODIUM LEVEL 139 MEQ/L (136-145); TOTAL PROTEIN 6.4 GM/DL (6.4-8.2); TROPONIN I < 0.02 NG/ML (< 0.10)
[2020-04-17 07:41] LABS: D-DIMER QUANT 812.06 ng/ml (<500)
[2020-04-17 08:00] VITALS: BP 112/64; O2SAT 93
[2020-04-17] MEDS: SYMBICORT 160/4.5MCG INHALER 6GM INH SCH ×2 (08:00→19:45)
[2020-04-17] MEDS: predniSONE 10 MG TAB PO SCH (08:53)
[2020-04-17] MEDS: BENZONATATE 100 MG CAP PO SCH ×3 (08:53→19:53)
[2020-04-17] MEDS: ASPIRIN 81 MG ENTERIC TAB PO SCH (08:53)
[2020-04-17] MEDS: ENOXAPARIN 150MG/ML SYRINGE (J1650 PER 10MG) SC SCH ×2 (11:37→23:36)
[2020-04-17 12:00] VITALS: BP 112/67
--- NOTE | 2020-04-17 14:27 | IPNPDOC ---
Date Seen The patient was seen on 04/17/20. Progress Note SUBJECTIVE: 49-year-old male with a PMHx of HTN and Obesity who presented to the ER with shortness of breath, cough and diarrhea. Patient reported that he was feeling symptoms on 03/24 and had gotten tested on 03/25 and he was found to be COVID19 positive. Upgraded to ICU for CPAP therapy, which he tolerated well. Downgraded back to [facility] PCU oon 04/14/20. Seen patient at bedside, d/w RN. Doing well. Presently on vapotherm 10L and 50% FiO2 and improvement from 70% at 25 LPM 04/16/20.. Afebrile overnight. Denies CP, palpitations, SOB, n/v/d. Having appropriate urinary voiding and BMs. OBJECTIVE PHYSICAL EXAMINATION: VITAL SIGNS: please see below General: NAD, comfortable HEENT: PERRLA, EOMI, sclerae clear Neck: supple, normal ROM, no JVD Respiratory: lungs CTAB, no wheeze, no rales, no crackles CVS: RRR, normal S1, S2, no murmurs Abdo: soft, no masses, no hepatosplenomegaly, BS+, no rebound tenderness Extremities: no edema, pulses 2+ MSK: no joint deformities, normal ROM Neuro: no focal neuro deficits, moving all 4 extremities, CN2-12 intact. Strength 5/5 in all 4 extremities. No nystagmus. Psych: calm, cooperative, AAO x 3 LABORATORY DATA, IMAGING STUDIES, MICROBIOLOGY: Please see below. CTA/PE (04/12/20): IMPRESSION: Evaluation for pulmonary emboli is limited due to excessive breathing motion. Questionable filling defects and pulmonary emboli in the inferior left lower lobe peripheral pulmonary arteries. Diffuse bilateral infiltrates. DVT prophylaxis ordered?: Full dose therapeutic lovenox 1 mg/kg q12h ASSESSMENT AND PLAN: Acute hypoxic respiratory failure - likely 2/2 COVID-19 pneumonia; and very likely 2/2 PE - Vapotherm 10L at 50%, attempt transition to NC - Inflammatory markers improving - completed 15 days of dexamethasone. Taper down with prednisone. - s/p Remdesivir (5 day course) - s/p Ceftriaxone and Azithromycin (5 day course); PCT remains negative - c/w incentive spirometry and symptomatic control - Acapella device - c/w full anticoagulation with Lovenox therapeutic - CTA very suspicious for PE Possible component of fluid overload - s/p Lasix 20 IV 04/11, 04/12, 04/14 - Will continue to monitor renal function, remains wnl - give another dose lasix 04/16/20 Hypertension - BP well controlled - Currently not on medications Nicotine dependence - c/w Nicotine patch Obesity - BMI 43.9 - Complicating medical care DVT prophylaxis - c/w Lovenox weight-based therapeutic dosing Disposition: - pending clinical improvement, anticipate return to home. May require home O2. VS, I&O, 24H, Fishbone Vital Signs/I&O Vital Signs Date Time Temp Pulse Resp B/P (MAP) Pulse Ox O2 Delivery O2 Flow Rate FiO2 04/17/20 12:00 97.2 95 18 112/67 (82) 89 HVNI-Vapotherm 10.0 50 I&O- Last 24 Hours up to 6 AM 04/17/20 05:59 Intake Total 1880 ml Output Total 1000 ml Balance 880 ml Laboratory Data 24H LABS Laboratory Tests 2 04/17/20 06:13: Immature Granulocyte % (Auto) 0.7, Neutrophils (%) (Auto) 68.9H, Lymphocytes (%) (Auto) 22.9L, Monocytes (%) (Auto) 6.7H, Eosinophils (%) (Auto) 0.5, Basophils (%) (Auto) 0.3, Neutrophils # (Auto) 10.5H, Lymphocytes # (Auto) 3.5, Monocytes # (Auto) 1.0H, Eosinophils # (Auto) 0.1, Basophils # (Auto) 0.0, Nucleated Red Blood Cells % (auto) 0.0, Prothrombin Time 13.5, Prothromb Time International Ratio 1.01, Activated Partial Thromboplast Time 49.4H, Fibrinogen 649H, D-Dimer, Quantitative 812.06H, Anion Gap 8, Glomerular Filtration Rate > 60.0, Calcium Level 8.8, Magnesium Level 2.1, Ferritin 370, Total Bilirubin 0.3, Direct Bilirubin 0.1, Aspartate Amino Transf (AST/SGOT) 15, Alanine Aminotransferase (ALT/SGPT) 71, Alkaline Phosphatase 50, Lactate Dehydrogenase 279H, Total Creatine Kinase 35L, Troponin I < 0.02, PR-Ozz-D-Type Natriuretic Peptide 24, Total Protein 6.4, Albumin 2.5L, Albumin/Globulin Ratio 0.6 CBC/BMP Laboratory Tests 04/17/20 06:13 CAROLEE PATRICK MD Apr 17, 2020 14:27
[2020-04-17 16:00] VITALS: BP 119/65; O2SAT 90
[2020-04-17] MEDS: NICOTINE 21MG/24HR 1 EA TRANSDERMAL TD SCH (19:54)
[2020-04-17] MEDS: SODIUM CHLORIDE 0.9% INJ 10 ML SYR IV SCH (19:54)
[2020-04-17 21:04] VITALS: BP 124/73
[2020-04-17 23:57] VITALS: BP 127/66
[2020-04-18] MEDS: ALBUTEROL 90 MCG/ACT 8GM HFA INHALER INH SCH ×7 (00:29→23:24)
[2020-04-18 04:40] VITALS: BP 128/65
[2020-04-18 07:03] LABS: BASO % 0.3 % (0.0-1.0); EOS # 0.1 10^3/uL (0.0-0.5); EOS % 1.1 % (0.0-3.0); HEMATOCRIT 38.7 % (42.0-52.0); HEMOGLOBIN 12.3 g/dl (13.5-17.5); LYMPH # 3.8 10^3/uL (1.5-5.0); LYMPH % 29.8 % (24.0-44.0); MEAN CORPUSCULAR HEMOGLOBIN 27.8 pg (27.0-33.0); MEAN CORPUSCULAR HGB CONC 31.8 g/dl (32.0-36.5); MEAN CORPUSCULAR VOLUME 87.6 fl (80.0-96.0); MONO # 0.9 10^3/uL (0.0-0.8); MONO % 7.2 % (0.0-5.0); NEUTROPHILS # 7.7 10^3/uL (1.5-8.5); PLATELET COUNT, AUTOMATED 296 10^3/uL (150-450); RED BLOOD COUNT 4.42 10^6/uL (4.30-6.10); WHITE BLOOD COUNT 12.7 10^3/uL (4.0-10.0)
[2020-04-18 07:14] LABS: INR 1.01; PROTHROMBIN TIME 13.5 SECONDS (12.5-14.3)
[2020-04-18 07:15] LABS: PARTIAL THROMBOPLASTIN TIME 52.4 SECONDS (24.2-38.5)
[2020-04-18] MEDS: SYMBICORT 160/4.5MCG INHALER 6GM INH SCH ×2 (07:27→19:12)
[2020-04-18 07:37] LABS: ALBUMIN 2.4 GM/DL (3.2-5.2); ALT/SGPT 79 U/L (12-78); BILIRUBIN,DIRECT < 0.1 MG/DL (0.0-0.2); BILIRUBIN,TOTAL 0.2 MG/DL (0.2-1.0); BLOOD UREA NITROGEN 19 MG/DL (7-18); CALCIUM LEVEL 8.6 MG/DL (8.5-10.1); CARBON DIOXIDE LEVEL 28 MEQ/L (21-32); CHLORIDE LEVEL 105 MEQ/L (98-107); CPK CREATINE PHOSPHOKINASE 42 U/L (39-308); CREATININE FOR GFR 0.94 MG/DL (0.70-1.30); FERRITIN 375 NG/ML (26-388); GLOMERULAR FILTRATION RATE > 60.0 (>56); GLUCOSE, FASTING 80 MG/DL (70-100); LDH LACTATE DEHYDROGENASE 318 U/L (87-241); MAGNESIUM LEVEL 2.1 MG/DL (1.8-2.4); NT-PRO BNP 46 PG/ML (<125); POTASSIUM SERUM 4.1 MEQ/L (3.5-5.1); SODIUM LEVEL 140 MEQ/L (136-145); TOTAL PROTEIN 6.2 GM/DL (6.4-8.2); TROPONIN I < 0.02 NG/ML (< 0.10)
[2020-04-18 08:00] VITALS: BP 139/74
[2020-04-18] MEDS: ENOXAPARIN 150MG/ML SYRINGE (J1650 PER 10MG) SC SCH ×2 (10:04→23:57)
[2020-04-18] MEDS: BENZONATATE 100 MG CAP PO SCH ×3 (10:04→19:58)
[2020-04-18] MEDS: predniSONE 10 MG TAB PO SCH (10:04)
[2020-04-18] MEDS: ASPIRIN 81 MG ENTERIC TAB PO SCH (10:04)
[2020-04-18] MEDS ORDERED: SODIUM CHLORIDE NASAL 0.65% SPRAY BTL (OCEAN) PRN (10:45)
[2020-04-18 14:00] VITALS: BP 132/79
--- NOTE | 2020-04-18 14:11 | IPNPDOC ---
Date Seen The patient was seen on 04/18/20. Progress Note SUBJECTIVE: 49-year-old male with a PMHx of HTN and Obesity who presented to the ER with shortness of breath, cough and diarrhea. Patient reported that he was feeling symptoms on 03/24 and had gotten tested on 03/25 and he was found to be COVID19 positive. Upgraded to ICU for CPAP therapy, which he tolerated well. Downgraded back to 4[facility] PCU on 04/14/20. Seen patient at bedside, d/w RN. Doing well. Weaned off vapotherm, no on 5L NC saturating at 90%. Desaturatesdto low 80s/high 70s on NC while ambulating. Afebrile overnight. Denies CP, palpitations, SOB, n/v/d. Having appropriate urinary voiding and BMs. OBJECTIVE PHYSICAL EXAMINATION: VITAL SIGNS: please see below General: NAD, comfortable HEENT: PERRLA, EOMI, sclerae clear Neck: supple, normal ROM, no JVD Respiratory: lungs CTAB, no wheeze, no rales, no crackles CVS: RRR, normal S1, S2, no murmurs Abdo: soft, no masses, no hepatosplenomegaly, BS+, no rebound tenderness Extremities: no edema, pulses 2+ MSK: no joint deformities, normal ROM Neuro: no focal neuro deficits, moving all 4 extremities, CN2-12 [address] ength 5/5 in all 4 extremities. No nystagmus. Psych: calm, cooperative, AAO x 3 LABORATORY DATA, IMAGING STUDIES, MICROBIOLOGY: Please see below. CTA/PE (04/12/20): IMPRESSION: Evaluation for pulmonary emboli is limited due to excessive breathing motion. Questionable filling defects and pulmonary emboli in the inferior left lower lobe peripheral pulmonary arteries. Diffuse bilateral infiltrates. DVT prophylaxis ordered?: Full dose therapeutic lovenox 1 mg/kg q12h ASSESSMENT AND PLAN: Acute hypoxic respiratory failure - likely 2/2 COVID-19 pneumonia; and very lik jessica 2/2 PE - s/p vapotherm. NC 5L at 90%. - Inflammatory markers improving - completed 15 days of dexamethasone. Taper down with prednisone. - s/p Remdesivir (5 day course) - s/p Ceftriaxone and Azithromycin (5 day course); PCT remains negative - c/w incentive spirometry and symptomatic control - Acapella device - c/w full anticoagulation with Lovenox therapeutic - CTA very suspicious for PE Possible component of fluid overload - s/p Lasix 20 IV 04/11, 04/12, 04/14, 04/16 - Will continue to monitor renal function, remains wnl - give another dose lasix 04/18/20 Hypertension - BP well controlled - Currently not on medications Nicotine dependence - c/w Nicotine patch Obesity - BMI 43.9 - Complicating medical care DVT prophylaxis - c/w Lovenox weight-based therapeutic dosing Disposition: - pending clinical improvement, anticipate return to home. May require home O2. VS, I&O, 24H, Fishbone Vital Signs/I&O Vital Signs Date Time Temp Pulse Resp B/P (MAP) Pulse Ox O2 Delivery O2 Flow Rate FiO2 04/18/20 08:00 5.0 04/18/20 08:00 97.7 84 18 139/74 (95) 88 Nasal Cannula 04/17/20 12:00 50 I&O- Last 24 Hours up to 6 AM 04/18/20 06:00 Intake Total 1080 ml Output Total 1390 ml Balance -310 ml Laboratory Data 24H LABS Laboratory Tests 2 04/18/20 06:40: Immature Granulocyte % (Auto) 0.6, Neutrophils (%) (Auto) 61.0, Lymphocytes (%) (Auto) 29.8, Monocytes (%) (Auto) 7.2H, Eosinophils (%) (Auto) 1.1, Basophils (%) (Auto) 0.3, Neutrophils # (Auto) 7.7, Lymphocytes # (Auto) 3.8, Monocytes # (Auto) 0.9H, Eosinophils # (Auto) 0.1, Basophils # (Auto) 0.0, Nucleated Red Blood Cells % (auto) 0.0, Prothrombin Time 13.5, Prothromb Time International Ratio 1.01, Activated Partial Thromboplast Time 52.4H, Fibrinogen 632H, Anion Gap 7L, Glomerular Filtration Rate > 60.0, Calcium Level 8.6, Magnesium Level 2.1, Ferritin 375, Total Bilirubin 0.2, Direct Bilirubin < 0.1, Aspartate Amino Transf (AST/SGOT) 22, Alanine Aminotransferase (ALT/SGPT) 79H, Alkaline Phosphatase 53, Lactate Dehydrogenase 318H, Total Creatine Kinase 42, Troponin I < 0.02, AD-Hqs-K-Type Natriuretic Peptide 46, Total Protein 6.2L, Albumin 2.4L, Albumin/Globulin Ratio 0.6 CBC/BMP Laboratory Tests 04/18/20 06:40 CAROLEE PATRICK MD Apr 18, 2020 14:11
[2020-04-18] MEDS ORDERED: FUROSEMIDE 20MG/2ML VIAL (J1940) IV ONE (15:00)
[2020-04-18 19:13] VITALS: O2SAT 88
[2020-04-18] MEDS: SODIUM CHLORIDE 0.9% INJ 10 ML SYR IV SCH (19:58)
[2020-04-18 20:00] VITALS: BP 143/65
[2020-04-18] MEDS: NICOTINE 21MG/24HR 1 EA TRANSDERMAL TD SCH (21:00)
[2020-04-18 23:24] VITALS: O2SAT 93
[2020-04-19 04:00] VITALS: BP 125/59
[2020-04-19 05:03] VITALS: O2SAT 90
[2020-04-19] MEDS: ALBUTEROL 90 MCG/ACT 8GM HFA INHALER INH SCH ×6 (05:03→23:38)
[2020-04-19] MEDS: SYMBICORT 160/4.5MCG INHALER 6GM INH SCH ×2 (07:39→20:25)
[2020-04-19 08:00] VITALS: O2SAT 93
[2020-04-19] MEDS: BENZONATATE 100 MG CAP PO SCH ×3 (08:46→20:23)
[2020-04-19] MEDS: ASPIRIN 81 MG ENTERIC TAB PO SCH (08:46)
[2020-04-19] MEDS: predniSONE 10 MG TAB PO SCH (08:47)
[2020-04-19 09:37] LABS: BASO # 0.1 10^3/uL (0.0-0.2); BASO % 0.5 % (0.0-1.0); EOS # 0.2 10^3/uL (0.0-0.5); EOS % 1.6 % (0.0-3.0); HEMATOCRIT 42.2 % (42.0-52.0); HEMOGLOBIN 13.2 g/dl (13.5-17.5); LYMPH # 2.5 10^3/uL (1.5-5.0); LYMPH % 19.4 % (24.0-44.0); MEAN CORPUSCULAR HEMOGLOBIN 27.4 pg (27.0-33.0); MEAN CORPUSCULAR HGB CONC 31.3 g/dl (32.0-36.5); MEAN CORPUSCULAR VOLUME 87.6 fl (80.0-96.0); MONO # 0.7 10^3/uL (0.0-0.8); MONO % 5.3 % (0.0-5.0); NEUTROPHILS # 9.2 10^3/uL (1.5-8.5); NEUTROPHILS % 72.6 % (36.0-66.0); PLATELET COUNT, AUTOMATED 319 10^3/uL (150-450); RED BLOOD COUNT 4.82 10^6/uL (4.30-6.10); WHITE BLOOD COUNT 12.7 10^3/uL (4.0-10.0)
[2020-04-19 09:47] LABS: INR 1.02; PROTHROMBIN TIME 13.6 SECONDS (12.5-14.3)
[2020-04-19 09:48] LABS: PARTIAL THROMBOPLASTIN TIME 44.2 SECONDS (24.2-38.5)
[2020-04-19] MEDS: ENOXAPARIN 150MG/ML SYRINGE (J1650 PER 10MG) SC SCH (10:01)
[2020-04-19 10:10] LABS: ALBUMIN 2.7 GM/DL (3.2-5.2); ALT/SGPT 90 U/L (12-78); BILIRUBIN,DIRECT < 0.1 MG/DL (0.0-0.2); BILIRUBIN,TOTAL 0.2 MG/DL (0.2-1.0); BLOOD UREA NITROGEN 16 MG/DL (7-18); CALCIUM LEVEL 9.2 MG/DL (8.5-10.1); CARBON DIOXIDE LEVEL 23 MEQ/L (21-32); CHLORIDE LEVEL 103 MEQ/L (98-107); CPK CREATINE PHOSPHOKINASE 33 U/L (39-308); CREATININE FOR GFR 1.06 MG/DL (0.70-1.30); FERRITIN 414 NG/ML (26-388); GLOMERULAR FILTRATION RATE > 60.0 (>56); GLUCOSE, FASTING 170 MG/DL (70-100); LDH LACTATE DEHYDROGENASE 253 U/L (87-241); NT-PRO BNP 45 PG/ML (<125); SODIUM LEVEL 139 MEQ/L (136-145); TROPONIN I < 0.02 NG/ML (< 0.10)
--- NOTE | 2020-04-19 11:45 | IPNPDOC ---
Date Seen The patient was seen on 04/19/20. Progress Note SUBJECTIVE: 49-year-old male with a PMHx of HTN and Obesity who presented to the ER with shortness of breath, cough and diarrhea. Patient reported that he was feeling symptoms on 03/24 and had gotten tested on 03/25 and he was found to be COVID19 positive. Upgraded to ICU for CPAP therapy, which he tolerated well. Downgraded back to 4[facility] PCU on 04/14/20, and transitioned to NC Seen patient at bedside, d/w RN. Doing well. Weaned off vapotherm, now on 4L NC saturating at 90% at rest. Desaturates to low 80s/high 70s on NC while ambulating, despite beign on 4L. Afebrile overnight. Denies CP, palpitations, SOB, n/v/d. Having appropriate urinary voiding and BMs. OBJECTIVE PHYSICAL EXAMINATION: VITAL SIGNS: please see below General: NAD, comfortable HEENT: PERRLA, EOMI, sclerae clear Neck: supple, normal ROM, no JVD Respiratory: lungs CTAB, no wheeze, no rales, no crackles CVS: RRR, normal S1, S2, no murmurs Abdo: soft, no masses, no hepatosplenomegaly, BS+, no rebound tenderness Extremities: no edema, pulses 2+ MSK: no joint deformities, normal ROM Neuro: no focal neuro deficits, moving all 4 extremities, CN2-12 intact. Strength 5/5 in all 4 extremities. No nystagmus. Psych: calm, cooperative, AAO x 3 LABORATORY DATA, IMAGING STUDIES, MICROBIOLOGY: Please see below. CTA/PE (04/12/20): IMPRESSION: Evaluation for pulmonary emboli is limited due to excessive breathing motion. Questionable filling defects and pulmonary emboli in the inferior left lower lobe peripheral pulmonary arteries. Diffuse bilateral infiltrates. DVT prophylaxis ordered?: Full dose therapeutic lovenox 1 mg/kg q12h ASSESSMENT AND PLAN: Acute hypoxic respiratory failure - likely 2/2 COVID-19 pneumonia; and very likely 2/2 PE - s/p vapotherm. NC 4L - sat 90% at rest. Desaturatin on exertion - Inflammatory markers improving - completed 15 days of dexamethasone. Taper down with prednisone. - s/p Remdesivir (5 day course) - s/p Ceftriaxone and Azithromycin (5 day course); PCT repeat pending - c/w incentive spirometry and symptomatic control - Acapella device - c/w full anticoagulation with Lovenox therapeutic - CTA very suspicious for PE - transition to Eliquis on 04/19/20, discussed with pharmacy, as patient has been treated with lovenox, no need for 7 days of 10 mg BID loading dose. Start eliquis 5 mg BID. Possible component of fluid overload - s/p Lasix 20 IV 04/11, 04/12, 04/14, 04/16 - Will continue to monitor renal function, remains wnl - give another dose lasix 04/18/20 Hypertension - BP well controlled - Currently not on medications Nicotine dependence - c/w Nicotine patch Obesity - BMI 43.9 - Complicating medical care DVT prophylaxis - c/w Lovenox weight-based therapeutic dosing Disposition: - pending clinical improvement, anticipate return to home. Will require home O2. VS, I&O, 24H, Fishbone Vital Signs/I&O Vital Signs Date Time Temp Pulse Resp B/P (MAP) Pulse Ox O2 Delivery O2 Flow Rate FiO2 04/19/20 10:05 90 Nasal Cannula 4.0 04/19/20 10:00 22 04/19/20 04:00 98.3 76 125/59 (81) 04/17/20 12:00 50 I&O- Last 24 Hours up to 6 AM 04/19/20 06:00 Intake Total 1680 ml Output Total 2100 ml Balance -420 ml Laboratory Data 24H LABS Laboratory Tests 2 04/19/20 09:11: Immature Granulocyte % (Auto) 0.6, Neutrophils (%) (Auto) 72.6H, Lymphocytes (%) (Auto) 19.4L, Monocytes (%) (Auto) 5.3H, Eosinophils (%) (Auto) 1.6, Basophils (%) (Auto) 0.5, Neutrophils # (Auto) 9.2H, Lymphocytes # (Auto) 2.5, Monocytes # (Auto) 0.7, Eosinophils # (Auto) 0.2, Basophils # (Auto) 0.1, Nucleated Red Blood Cells % (auto) 0.0, Prothrombin Time 13.6, Prothromb Time International Ratio 1.02, Activated Partial Thromboplast Time 44.2H, Fibrinogen 677H, Anion Gap 13, Glomerular Filtration Rate > 60.0, Calcium Level 9.2, Magnesium Level 2.0, Ferritin 414H, Total Bilirubin 0.2, Direct Bilirubin < 0.1, Aspartate Amino Transf (AST/SGOT) 23, Alanine Aminotransferase (ALT/SGPT) 90H, Alkaline Phosphatase 58, Lactate Dehydrogenase 253H, Total Creatine Kinase 33L, Troponin I < 0.02, XO-Esu-T-Type Natriuretic Peptide 45, Total Protein 7.0, Albumin 2.7L, Albumin/Globulin Ratio 0.6 CBC/BMP Laboratory Tests 04/19/20 09:11 CAROLEE PATRICK MD Apr 19, 2020 11:45
[2020-04-19] MEDS ORDERED: BENZ-18 PO (11:49)
[2020-04-19] MEDS ORDERED: PRED10TA2 PO (11:49)
[2020-04-19] MEDS ORDERED: SYMB16INH INH (11:49)
[2020-04-19] MEDS ORDERED: ASPI81TAEC PO (11:49)
[2020-04-19] MEDS ORDERED: ELIQ5TAB PO (11:49)
[2020-04-19 14:00] VITALS: BP 116/58
[2020-04-19 20:00] VITALS: BP 146/65; O2SAT 92
[2020-04-19] MEDS: APIXABAN 5 MG TAB (ELIQUIS) PO SCH (20:23)
[2020-04-19] MEDS: NYSTATIN 100,000 UNITS/GM TOPICAL PWD 15 GM TOP SCH (20:24)
[2020-04-19] MEDS: NICOTINE 21MG/24HR 1 EA TRANSDERMAL TD SCH (20:24)
[2020-04-19] MEDS: SODIUM CHLORIDE 0.9% INJ 10 ML SYR IV SCH (20:25)
[2020-04-19] MEDS ORDERED: ENOXAPARIN 150MG/ML SYRINGE (J1650 PER 10MG) SC SCH (22:00)
[2020-04-20] VITALS: O2SAT 91
[2020-04-20 04:00] VITALS: BP 124/59; O2SAT 91
[2020-04-20] MEDS: ALBUTEROL 90 MCG/ACT 8GM HFA INHALER INH SCH ×5 (04:04→21:26)
[2020-04-20] MEDS: SYMBICORT 160/4.5MCG INHALER 6GM INH SCH ×2 (07:32→21:26)
[2020-04-20 07:50] LABS: BASO # 0.1 10^3/uL (0.0-0.2); BASO % 0.5 % (0.0-1.0); EOS # 0.2 10^3/uL (0.0-0.5); EOS % 1.5 % (0.0-3.0); HEMOGLOBIN 12.5 g/dl (13.5-17.5); LYMPH # 2.8 10^3/uL (1.5-5.0); LYMPH % 27.1 % (24.0-44.0); MEAN CORPUSCULAR HEMOGLOBIN 27.2 pg (27.0-33.0); MEAN CORPUSCULAR HGB CONC 31.3 g/dl (32.0-36.5); MEAN CORPUSCULAR VOLUME 87.1 fl (80.0-96.0); MONO # 0.8 10^3/uL (0.0-0.8); MONO % 7.4 % (0.0-5.0); NEUTROPHILS # 6.5 10^3/uL (1.5-8.5); PLATELET COUNT, AUTOMATED 280 10^3/uL (150-450); RED BLOOD COUNT 4.59 10^6/uL (4.30-6.10); WHITE BLOOD COUNT 10.3 10^3/uL (4.0-10.0)
[2020-04-20 08:00] VITALS: BP 123/73; O2SAT 91
[2020-04-20 08:01] LABS: INR 1.09; PROTHROMBIN TIME 14.3 SECONDS (12.5-14.3)
[2020-04-20 08:02] LABS: PARTIAL THROMBOPLASTIN TIME 42.9 SECONDS (24.2-38.5)
[2020-04-20] MEDS: BENZONATATE 100 MG CAP PO SCH ×3 (08:15→22:34)
[2020-04-20] MEDS: NYSTATIN 100,000 UNITS/GM TOPICAL PWD 15 GM TOP SCH ×2 (08:15→22:36)
[2020-04-20] MEDS: predniSONE 10 MG TAB PO SCH (08:15)
[2020-04-20] MEDS: APIXABAN 5 MG TAB (ELIQUIS) PO SCH ×2 (08:15→22:34)
[2020-04-20] MEDS: ASPIRIN 81 MG ENTERIC TAB PO SCH (08:15)
[2020-04-20 08:22] LABS: ALBUMIN 2.6 GM/DL (3.2-5.2); ALT/SGPT 83 U/L (12-78); BILIRUBIN,DIRECT < 0.1 MG/DL (0.0-0.2); BILIRUBIN,TOTAL 0.2 MG/DL (0.2-1.0); BLOOD UREA NITROGEN 17 MG/DL (7-18); CALCIUM LEVEL 8.8 MG/DL (8.5-10.1); CARBON DIOXIDE LEVEL 27 MEQ/L (21-32); CHLORIDE LEVEL 107 MEQ/L (98-107); CPK CREATINE PHOSPHOKINASE 37 U/L (39-308); CREATININE FOR GFR 0.89 MG/DL (0.70-1.30); FERRITIN 370 NG/ML (26-388); GLOMERULAR FILTRATION RATE > 60.0 (>56); GLUCOSE, FASTING 76 MG/DL (70-100); LDH LACTATE DEHYDROGENASE 243 U/L (87-241); MAGNESIUM LEVEL 2.2 MG/DL (1.8-2.4); NT-PRO BNP 46 PG/ML (<125); POTASSIUM SERUM 4.2 MEQ/L (3.5-5.1); SODIUM LEVEL 143 MEQ/L (136-145); TOTAL PROTEIN 6.4 GM/DL (6.4-8.2); TROPONIN I < 0.02 NG/ML (< 0.10)
[2020-04-20 12:00] VITALS: O2SAT 92
[2020-04-20] MEDS ORDERED: FUROSEMIDE 20MG/2ML VIAL (J1940) IV ONE (12:45)
--- NOTE | 2020-04-20 12:48 | IPNPDOC ---
Text Note Date of Service The patient was seen on 04/20/20. NOTE Subjective: Patient is 49-year-old male with a PMHx of HTN and Obesity who presented to the ER with shortness of breath, cough and diarrhea. Patient repo rted that he was feeling symptoms on 03/24 and had gotten tested on 03/25 and he was found to be COVID19 positive. Patient was admitted to the hospitalist service for further evaluation and treatment. On 04/10, patient was transferred to the ICU for CPAP therapy to help with his oxygenation. Patient was seen and examined at the bedside. Patient was seen sitting up at bedside. Denies any chest pain, shortness of breath or palpitations. Upon ambulation patient's pulse oximeter does show drop in saturation. Patient denies any nausea, vomiting, abdominal pain, diarrhea, or urinary discomfort. Objective: Vitals (See below) General: Sitting up at the edge of the bed, appears to be comfortable, awake, alert and oriented 3 HEENT: NC, AT CVS: +S1S2 Lungs: Air entry is fair bilaterally without any auscultated rhonchi, crackles or wheezing Abdomen: Obese but soft, nondistended and nontender Extremities: No significant edema, - Calf tenderness Imaging: CTA/PE (04/12/20): Evaluation for pulmonary emboli is limited due to excessive breathing motion. Questionable filling defects and pulmonary emboli in the inferior left lower lo be peripheral pulmonary arteries. Diffuse bilateral infiltrates. Assessment and plan: Acute hypoxic respiratory failure - likely 2/2 COVID-19 pneumonia; and very likely 2/2 PE - s/p CPAP and Vapotherm - c/w supplemental oxygen via nasal cannula - currently at 4L; desaturations noted with ambulation - Inflammatory markers improving - s/p Dexamethasone; c/w Prednisone taper - s/p Remdesivir (5 day course) - s/p Ceftriaxone and Azithromycin (5 day course) - c/w incentive spirometry and symptomatic control - s/p Lovenox therapeutic; c/w Eliquis Possible component of fluid overload - Will continue to monitor renal function - Will provide doses of Lasix as needed Hypertension - BP well controlled - Currently not on medications Nicotine dependence - c/w Nicotine patch Obesity - BMI 43.9 - Complicating medical care DVT prophylaxis - c/w full anticoagulation with Eliquis Disposition: - Anticipate discharge within the next 24-48 hours VS,Fishbone, I+O VS, Fishbone, I+O Laboratory Tests 04/20/20 06:39 Vital Signs Date Time Temp Pulse Resp B/P (MAP) Pulse Ox O2 Delivery O2 Flow Rate FiO2 04/20/20 08:00 98.2 112 23 123/73 (90) 93 Nasal Cannula 4.0 04/17/20 12:00 50 I&O- Last 24 Hours up to 6 AM 04/20/20 06:00 Intake Total 1200 ml Output Total 1200 ml Balance 0 ml ISIDRO CLEMENTS MD Apr 20, 2020 12:48
[2020-04-20 16:00] VITALS: BP 135/77; O2SAT 91
[2020-04-20] MEDS: NICOTINE 21MG/24HR 1 EA TRANSDERMAL TD SCH (22:04)
[2020-04-20] MEDS: SODIUM CHLORIDE 0.9% INJ 10 ML SYR IV SCH (22:35)
[2020-04-20 22:46] VITALS: BP 131/73
[2020-04-21] VITALS (7 sets, daily range): BP systolic 125–136; BP diastolic 62–78; O2SAT 89–91
[2020-04-21] MEDS: ALBUTEROL 90 MCG/ACT 8GM HFA INHALER INH SCH ×7 (00:13→23:57)
[2020-04-21 07:40] LABS: BASO # 0.1 10^3/uL (0.0-0.2); BASO % 0.7 % (0.0-1.0); EOS # 0.3 10^3/uL (0.0-0.5); EOS % 2.5 % (0.0-3.0); HEMATOCRIT 42.8 % (42.0-52.0); HEMOGLOBIN 13.5 g/dl (13.5-17.5); LYMPH # 3.6 10^3/uL (1.5-5.0); LYMPH % 31.1 % (24.0-44.0); MEAN CORPUSCULAR HEMOGLOBIN 27.6 pg (27.0-33.0); MEAN CORPUSCULAR HGB CONC 31.5 g/dl (32.0-36.5); MEAN CORPUSCULAR VOLUME 87.5 fl (80.0-96.0); MONO # 0.8 10^3/uL (0.0-0.8); NEUTROPHILS # 6.6 10^3/uL (1.5-8.5); NEUTROPHILS % 58.3 % (36.0-66.0); PLATELET COUNT, AUTOMATED 317 10^3/uL (150-450); RED BLOOD COUNT 4.89 10^6/uL (4.30-6.10); WHITE BLOOD COUNT 11.4 10^3/uL (4.0-10.0)
[2020-04-21] MEDS: SYMBICORT 160/4.5MCG INHALER 6GM INH SCH ×2 (07:42→20:43)
[2020-04-21 08:01] LABS: INR 1.08; PROTHROMBIN TIME 14.2 SECONDS (12.5-14.3)
[2020-04-21 08:02] LABS: PARTIAL THROMBOPLASTIN TIME 46.8 SECONDS (24.2-38.5)
[2020-04-21] MEDS: ASPIRIN 81 MG ENTERIC TAB PO SCH (08:37)
[2020-04-21] MEDS: APIXABAN 5 MG TAB (ELIQUIS) PO SCH ×2 (08:37→20:10)
[2020-04-21] MEDS: predniSONE 10 MG TAB PO SCH (08:37)
[2020-04-21] MEDS: BENZONATATE 100 MG CAP PO SCH ×3 (08:37→20:10)
[2020-04-21] MEDS: NYSTATIN 100,000 UNITS/GM TOPICAL PWD 15 GM TOP SCH ×2 (08:40→20:11)
[2020-04-21 08:53] LABS: ALBUMIN 2.9 GM/DL (3.2-5.2); ALT/SGPT 92 U/L (12-78); BILIRUBIN,DIRECT < 0.1 MG/DL (0.0-0.2); BILIRUBIN,TOTAL 0.2 MG/DL (0.2-1.0); BLOOD UREA NITROGEN 18 MG/DL (7-18); CALCIUM LEVEL 9.4 MG/DL (8.5-10.1); CARBON DIOXIDE LEVEL 26 MEQ/L (21-32); CHLORIDE LEVEL 103 MEQ/L (98-107); CPK CREATINE PHOSPHOKINASE 30 U/L (39-308); CREATININE FOR GFR 0.94 MG/DL (0.70-1.30); GLOMERULAR FILTRATION RATE > 60.0 (>56); GLUCOSE, FASTING 78 MG/DL (70-100); LDH LACTATE DEHYDROGENASE 245 U/L (87-241); POTASSIUM SERUM 4.1 MEQ/L (3.5-5.1); SODIUM LEVEL 140 MEQ/L (136-145); TOTAL PROTEIN 6.8 GM/DL (6.4-8.2)
[2020-04-21 08:54] LABS: FERRITIN 371 NG/ML (26-388); MAGNESIUM LEVEL 2.2 MG/DL (1.8-2.4); NT-PRO BNP 35 PG/ML (<125); TROPONIN I < 0.02 NG/ML (< 0.10)
[2020-04-21] MEDS ORDERED: FUROSEMIDE 20MG/2ML VIAL (J1940) IV ONE (09:45)
[2020-04-21] MEDS: SODIUM CHLORIDE 0.9% INJ 10 ML SYR IV PRN (10:07)
--- NOTE | 2020-04-21 11:53 | IPNPDOC ---
Text Note Date of Service The patient was seen on 04/21/20. NOTE Subjective: Patient is 49-year-old male with a PMHx of HTN and Obesity who presented to the ER with shortness of breath, cough and diarrhea. Patient repo rted that he was feeling symptoms on 03/24 and had gotten tested on 03/25 and he was found to be COVID19 positive. Patient was admitted to the hospitalist service for further evaluation and treatment. On 04/10, patient was transferred to the ICU for CPAP therapy to help with his oxygenation. Patient was seen and examined at the bedside. Patient denies any CP, palpitations or significant cough. Still notes he get SOB with exertion, denies any abdominal pain, C/D or dysuria. Objective: Vitals (See below) General: Sitting up at the edge of the bed, appears to be comfortable and not in any acute distress, is awake, alert and oriented 3 HEENT: NC, AT CVS: +S1S2 Lungs: Air entry appears to be fair bilaterally without any auscultated rhonchi, crackles or wheezing Abdomen: Patient's abdomen remains soft, obese, no appreciable distention or tenderness Extremities: Lower extremities are free of any pitting edema, - Calf tenderness Imaging: CTA/PE (04/12/20): Evaluation for pulmonary emboli is limited due to excessive breathing motion. Questionable filling defects and pulmonary emboli in the inferior left lower lobe peripheral pulmonary arteries. Diffuse bilateral infiltrates. Assessment and plan: Acute hypoxic respiratory failure - likely 2/2 COVID-19 pneumonia; and very likely 2/2 PE - s/p CPAP and Vapotherm - c/w supplemental oxygen via NC / noted to have desaturations with ambulation; will continue to taper down oxygen as tolerated - Inflammatory markers improving - s/p Dexamethasone; c/w Prednisone taper - s/p Remdesivir (5 day course) - s/p Ceftriaxone and Azithromycin (5 day course) - c/w incentive spirometry and symptomatic control - s/p Lovenox therapeutic; c/w Eliquis Possible component of fluid overload - Will continue to monitor renal function - Will provide doses of Lasix as needed Hypertension - BP well controlled - Currently not on medications Nicotine dependence - c/w Nicotine patch Obesity - BMI 43.9 - Complicating medical care DVT prophylaxis - c/w full anticoagulation with Eliquis Disposition: - Anticipate discharge within the next 24-48 hours VS,Marta, I+O VS, Reynaldoe, I+O Laboratory Tests 04/21/20 06:56 Vital Signs Date Time Temp Pulse Resp B/P (MAP) Pulse Ox O2 Delivery O2 Flow Rate FiO2 04/21/20 09:21 3.0 04/21/20 08:00 97.5 78 20 125/78 (94) 90 Nasal Cannula 04/17/20 12:00 50 I&O- Last 24 Hours up to 6 AM 04/21/20 06:00 Intake Total 922 ml Output Total 1725 ml Balance -803 ml ISIDRO CLEMENTS MD Apr 21, 2020 11:53
[2020-04-21] MEDS: SODIUM CHLORIDE 0.9% INJ 10 ML SYR IV SCH (20:11)
[2020-04-21] MEDS: NICOTINE 21MG/24HR 1 EA TRANSDERMAL TD SCH (21:00)
[2020-04-22] MEDS: ALBUTEROL 90 MCG/ACT 8GM HFA INHALER INH SCH ×3 (03:16→11:23)
[2020-04-22 04:00] VITALS: BP 112/58
[2020-04-22 07:08] LABS: BASO # 0.1 10^3/uL (0.0-0.2); BASO % 0.6 % (0.0-1.0); EOS # 0.3 10^3/uL (0.0-0.5); EOS % 3.3 % (0.0-3.0); HEMATOCRIT 40.9 % (42.0-52.0); HEMOGLOBIN 12.9 g/dl (13.5-17.5); LYMPH # 3.4 10^3/uL (1.5-5.0); LYMPH % 33.4 % (24.0-44.0); MEAN CORPUSCULAR HEMOGLOBIN 27.4 pg (27.0-33.0); MEAN CORPUSCULAR HGB CONC 31.5 g/dl (32.0-36.5); MONO # 0.8 10^3/uL (0.0-0.8); MONO % 7.5 % (0.0-5.0); NEUTROPHILS # 5.6 10^3/uL (1.5-8.5); NEUTROPHILS % 54.5 % (36.0-66.0); PLATELET COUNT, AUTOMATED 270 10^3/uL (150-450); WHITE BLOOD COUNT 10.3 10^3/uL (4.0-10.0)
[2020-04-22 07:30] LABS: BLOOD UREA NITROGEN 20 MG/DL (7-18); CALCIUM LEVEL 8.9 MG/DL (8.5-10.1); CARBON DIOXIDE LEVEL 28 MEQ/L (21-32); CHLORIDE LEVEL 105 MEQ/L (98-107); GLOMERULAR FILTRATION RATE > 60.0 (>56); GLUCOSE, FASTING 76 MG/DL (70-100); MAGNESIUM LEVEL 2.1 MG/DL (1.8-2.4); SODIUM LEVEL 139 MEQ/L (136-145)
[2020-04-22] MEDS: SYMBICORT 160/4.5MCG INHALER 6GM INH SCH (08:01)
[2020-04-22] MEDS: APIXABAN 5 MG TAB (ELIQUIS) PO SCH (08:15)
[2020-04-22] MEDS: ASPIRIN 81 MG ENTERIC TAB PO SCH (08:15)
[2020-04-22] MEDS: BENZONATATE 100 MG CAP PO SCH (08:15)
[2020-04-22] MEDS: predniSONE 10 MG TAB PO SCH (08:16)
[2020-04-22] MEDS: NYSTATIN 100,000 UNITS/GM TOPICAL PWD 15 GM TOP SCH (08:17)
--- NOTE | 2020-04-22 11:09 | DS.PDOC ---
Discharge Summary General Date of Admission Apr 01, 2020 at 12:43 Date of Discharge 04/22/2020 Discharge Summary PROCEDURES PERFORMED DURING STAY: [None]. ADMITTING DIAGNOSES / DISCHARGE DIAGNOSES: Acute hypoxic respiratory failure - likely 2/2 COVID-19 pneumonia; and very likely 2/2 PE Possible component of fluid overload Hypertension Nicotine dependence Obesity DVT prophylaxis COMPLICATIONS/CHIEF COMPLAINT: Shortness of breath HISTORY OF PRESENT ILLNESS: Patient is 49-year-old male with a PMHx of HTN and Obesity who presented to the ER with shortness of breath, cough and diarrhea. Patient reported that he was feeling symptoms on 03/24 and had gotten tested on 03/25 and he was found to be COVID19 positive. Patient was admitted to the hospitalist service for further evaluation and treatment. On 04/10, patient was transferred to the ICU for CPAP therapy to help with his oxygenation. HOSPITAL COURSE: Acute hypoxic respiratory failure - likely 2/2 COVID-19 pneumonia; and very li rafa 2/2 PE - s/p CPAP and Vapotherm - c/w supplemental oxygen via NC; quickly recovers saturation at rest - Inflammatory markers improving - s/p Dexamethasone; c/w Prednisone taper - s/p Remdesivir (5 day course) - s/p Ceftriaxone and Azithromycin (5 day course) - c/w incentive spirometry and symptomatic control - s/p Lovenox therapeutic; c/w Eliquis - Patient has worked with physical therapy, and the lowest was noted to be at 86% on room air, however, quickly recovered - Will supply supplemental oxygen for ambulation - Will have outpatient follow-up with primary care provider within the next 7 days Possible component of fluid overload - Will continue to monitor renal function - s/p Lasix doses; unlikely will require additional diuresis as an outpatient Hypertension - BP well controlled - Currently not on medications Nicotine dependence - c/w Nicotine patch Obesity - BMI 43.9 - Complicating medical care DVT prophylaxis - c/w full anticoagulation with Eliquis DISCHARGE MEDICATIONS: Please see below. ALLERGIES: Please see below. PHYSICAL EXAMINATION ON DISCHARGE: Vitals (See below) General: Patient is sitting up at that adjusted the bed, appears comfortable, is awake, alert and oriented 3 HEENT: NC, AT CVS: +S1S2 Lungs: There is fair air entry bilaterally without any auscultated crackles, wheezing or rhonchi Abdomen: Abdomen again is soft without any appreciated tenderness or distention Extremities: No edema appreciated at lower extremities, - Calf tenderness LABORATORY DATA: Please see below. IMAGING: CTA/PE (04/12/20): Evaluation for pulmonary emboli is limited due to excessive breathing motion. Questionable filling defects and pulmonary emboli in the inferior left lower lobe peripheral pulmonary arteries. Diffuse bilateral infiltrates. ACTIVITY: [As tolerated]. DISCHARGE PLAN: Follow-up with primary provider within the next 7 days Remain compliant with treatment plan and medications Return to the ER if you experience any problems DISPOSITION: Home DISCHARGE CONDITION: [Stable]. TIME SPENT ON DISCHARGE: 35 minutes. Vital Signs/I&Os Vital Signs Date Time Temp Pulse Resp B/P (MAP) Pulse Ox O2 Delivery O2 Flow Rate FiO2 04/22/20 09:47 2.0 04/22/20 04:00 96.7 104 17 112/58 (76) 90 Nasal Cannula 04/17/20 12:00 50 I&O- Last 24 Hours up to 6 AM 04/22/20 05:59 Intake Total 1500 ml Output Total 1500 ml Balance 0 ml Laboratory Data Labs 24H Laboratory Tests 2 04/22/20 06:22: Immature Granulocyte % (Auto) 0.7, Neutrophils (%) (Auto) 54.5, Lymphocytes (%) (Auto) 33.4, Monocytes (%) (Auto) 7.5H, Eosinophils (%) (Auto) 3.3H, Basophils (%) (Auto) 0.6, Neutrophils # (Auto) 5.6, Lymphocytes # (Auto) 3.4, Monocytes # (Auto) 0.8, Eosinophils # (Auto) 0.3, Basophils # (Auto) 0.1, Nucleated Red Blood Cells % (auto) 0.0, Anion Gap 6L, Glomerular Filtration Rate > 60.0, Calcium Level 8.9, Magnesium Level 2.1 CBC/BMP Laboratory Tests 04/22/20 06:22 Discharge Medications Scheduled Apixaban (Eliquis) 5 Mg Tablet, 5 MG PO BID Aspirin (Aspirin EC) 81 Mg Tablet.dr, 81 MG PO DAILY Benzonatate (Benzonatate) 100 Mg Capsule, 100 MG PO TID Budesonide/Formoterol (Symbicort 160-4.5 Mcg Inhaler) 6 Gm Hfa.aer.ad, 2 PUFF INH RBID Prednisone (Prednisone) 10 Mg Tablet, 40 MG PO DAILY Allergies Coded Allergies: No Known Allergies (Unverified , 04/01/20) ISIDRO CLEMENTS MD Apr 22, 2020 11:09
== END 2020-04-22 14:51 | disposition home or self-care (01) | DRG 137 ==
LOC: M ED 10:00 → EDBD 10:00 → M ED INP 12:43 → M 4MAIN 23:58 → M ICU 04-10 14:20 → M 4MAIN 04-14 11:51
PROVIDERS: ADMIT Internal Medicine; ATTEND Internal Medicine
PROC: 05HB33Z Insertion of Infusion Device into Right Basilic Vein, Percutaneous Approach (ICD-10-PCS; principal; 2020-04-05 16:30)
DX: U07.1 COVID-19 (principal); I26.99 Other pulmonary embolism without acute cor pulmonale; J96.01 Acute respiratory failure with hypoxia; J15.9 Unspecified bacterial pneumonia; D68.69 Other thrombophilia; J12.89 Other viral pneumonia; Z68.41 Body mass index [BMI] 40.0-44.9, adult; E66.01 Morbid (severe) obesity due to excess calories; E87.70 Fluid overload, unspecified; I10 Essential (primary) hypertension; F17.200 Nicotine dependence, unspecified, uncomplicated; Z79.82 Long term (current) use of aspirin; Z79.899 Other long term (current) drug therapy

== ENCOUNTER → 2020-06-16 | Outpatient (CLI) | payer BC, OTHER ==
[~2020-06-16] MED LIST: ASPI-569 PO; BENZ-18 PO; ELIQ5TAB PO; IBUP200T45 PO; PRED10TA2 PO; SYMB16INH INH
--- NOTE | 2020-06-18 10:45 | SLEEPCENT ---
NOCTURNAL POLYSOMNOGRAPHY DATE: 06/16/2020 ORDERED BY: Yvette Grey NP Nocturnal polysomnography was performed for evaluation of sleep physiology in this patient with a history of excessive somnolence and nonrestorative sleep. 9 hours and 11 minutes of data were reviewed. There were 425 minutes of sleep identified. Sleep latency was short at 6 minutes. REM latency was delayed at 205 minutes. Sleep architecture improved late in the study with five REM cycles. Fragmentation was seen early before interventions were made. The overall sleep efficiency was 77.8%. The patient's electrocardiogram showed a sinus rhythm with an average heart rate of 84 beats per minute. EEG showed normal waveforms for wake and sleep. There were 262 respiratory events identified of 10 seconds in duration or greater for an apnea-hypopnea index of 37. The events were obstructive and having clearly established the presence of obstructive sleep apnea syndrome early in testing, the study was stopped shortly after 11 p.m. for the application of pressure therapy. The patient was fit with a [employer] Quattro Mirage full face mask of medium size, 5 cm of water pressure were applied to the circuit, and the lights were extinguished. Throughout the remaining hours of testing, pressure titration was performed and best sleep was seen on a CPAP pressure of +15. There was evidence of significant improvement in sleep physiology and REM rebound was demonstrated. Some activity was seen in the limb leads as well early in the study. This was not presently in the test. IMPRESSION: Severe obstructive sleep apnea syndrome (G47.33), apnea-hypopnea index 37. RECOMMENDATION: Nightly use of pressure therapy 15 cm of water.
== END ==
LOC: M SLEEP 20:00
PROVIDERS: ATTEND Nurse Practitioner Adult Health
DX: G47.33 Obstructive sleep apnea (adult) (pediatric) (principal)

== ENCOUNTER → 2020-07-05 | Outpatient (CLI) | payer BC, OTHER ==
[2020-07-05 14:23] LABS: BASO # 0.1 10^3/uL (0.0-0.2); BASO % 1.1 % (0.0-1.0); EOS # 0.4 10^3/uL (0.0-0.5); EOS % 3.8 % (0.0-3.0); HEMOGLOBIN 15.2 g/dl (13.5-17.5); LYMPH # 2.4 10^3/uL (1.5-5.0); LYMPH % 22.9 % (24.0-44.0); MEAN CORPUSCULAR HEMOGLOBIN 27.7 pg (27.0-33.0); MEAN CORPUSCULAR VOLUME 89.3 fl (80.0-96.0); MONO # 0.7 10^3/uL (0.0-0.8); MONO % 6.9 % (2.0-8.0); NEUTROPHILS # 6.8 10^3/uL (1.5-8.5); NEUTROPHILS % 64.9 % (36.0-66.0); PLATELET COUNT, AUTOMATED 341 10^3/uL (150-450); RED BLOOD COUNT 5.49 10^6/uL (4.30-6.10); WHITE BLOOD COUNT 10.5 10^3/uL (4.0-10.0)
[2020-07-05 14:48] LABS: C REACTIVE PROTEIN QUANTITATIV 0.75 MG/DL (0.00-0.30); RHEUMATOID FACTOR QUANT 44.1 IU/ML (<15.0)
[2020-07-05 15:30] LABS: ERYTHROCYTE SEDIMENTATION RATE 16 mm/hr (0-20)
[2020-07-09 11:09] LABS: ANCA-ATYPICAL <1:20 titer (Neg:<1:20); ANGIOTENSIN 1 CONVERTING ENZYM 29 U/L (14-82); ANTINUCLEAR ANTIBODIES DIRECT Negative (Negative); ASPERGILLUS FUMIGATUS AB Negative (Negative); AUREOBASIDIUM PULLULANS Negative (Negative); CYCLIC CITRULLINATED PEPTIDE 6 units (0-19); CYTOPLASMIC NEUTROP AB ANCA-C <1:20 titer (Neg:<1:20); MICROPOLYSPORA FAENI AB Negative (Negative); PERINUCLEAR AB ANCA-P <1:20 titer (Neg:<1:20); PIGEON SERUM AB Negative (Negative); SJOGREN'S ANTI SS-A <0.2 AI (0.0-0.9); SJOGREN'S ANTI SS-B <0.2 AI (0.0-0.9); THERMOACTINOMYCES SACCHARI Negative (Negative); THERMOACTINOMYCES VULGARIS Negative (Negative)
== END ==
LOC: M PLALAB 11:52
PROVIDERS: ATTEND Internal Medicine Pulmonary Disease
DX: I26.09 Other pulmonary embolism with acute cor pulmonale (principal); Z86.16 Personal history of COVID-19

== ENCOUNTER → 2020-08-02 | Outpatient (CLI) | payer OTHER ==
[~2020-08-02] MED LIST changes: +ISOVUE-370 76% 100ML VIAL As Ordered ONE
--- NOTE | 2020-08-02 16:33 | REP ---
INDICATION: PULMONARY EMBOLISM COMPARISON: 04/07/2020 TECHNIQUE: Axial contrast enhanced images from the thoracic inlet to the upper abdomen using pulmonary embolus technique with multiplanar re-formations. 75 ml Isovue 370 intravenous contrast material administered without complication. This CT examination was performed using the following dose reduction techniques: Automated exposure control, adjustment of mA and/or kv according to the patient's size, and use of iterative reconstruction technique. FINDINGS: Satisfactory enhancement of the pulmonary vasculature is achieved and no filling defects are identified to suggest pulmonary embolus. Further evaluation of the mediastinum demonstrates normal thoracic aorta, heart and pericardium. The bilateral lung dill demonstrate moderate scattered ground-glass opacities similar in distribution to prior examination but considerably decreased suggesting continued resolution of the prior viral pneumonia versus subsequent chronic change and less likely new acute process. No new focal consolidation. No effusion or pneumothorax. Tracheobronchial tree is patent. Reactive mediastinal and hilar adenopathy has improved. Surrounding musculoskeletal structures are intact. Limited upper abdomen demonstrates hepatosteatosis and normal bilateral adrenal glands. IMPRESSION: No evidence for pulmonary embolus. Ground-glass opacities appear improved as compared to prior examination suggesting continued resolution of the prior viral pneumonia and less likely new acute process. <Electronically signed by Rudy Granado > 08/02/20 [id number]
== END ==
LOC: M RAD 07:34
PROVIDERS: ATTEND Internal Medicine Pulmonary Disease
DX: I26.09 Other pulmonary embolism with acute cor pulmonale (principal); R91.8 Other nonspecific abnormal finding of lung field

== ENCOUNTER → 2020-11-26 | Outpatient (CLI) | payer OTHER ==
[~2020-11-26] MED LIST changes: -ISOVUE-370 76% 100ML VIAL As Ordered ONE
--- NOTE | 2020-11-26 10:22 | REP ---
INDICATION: Personal history of COVID-19 COMPARISON: 04/01/2020 TECHNIQUE: PA and lateral. FINDINGS: The mediastinum and cardiac silhouette are normal. The lung dill are clear and without acute consolidation, effusion, or pneumothorax. The skeletal structures are intact and normal. IMPRESSION: No acute cardiopulmonary process. <Electronically signed by Rudy Granado > 11/26/20 [id number]
== END ==
LOC: M PLAIMG 09:36
PROVIDERS: ATTEND Internal Medicine Pulmonary Disease
DX: Z20.828 Contact with and (suspected) exposure to other viral communicable diseases (principal); Z86.16 Personal history of COVID-19

== ENCOUNTER → 2020-12-06 | Outpatient (REF) | payer OTHER | LOC: M LAB REF 18:03 | PROVIDERS: ATTEND Physician Assistant Medical | DX: Z01.84 Encounter for antibody response examination (principal) ==

== ENCOUNTER → 2020-12-17 | Outpatient (CLI) | payer BC, OTHER ==
--- NOTE | 2020-12-17 10:31 | REP ---
INDICATION: PERSONAL HX OF COVID. COMPARISON: CTA chest, 08/02/2020. TECHNIQUE: Imaging protocol: Computed tomography of the chest without IV contrast. Contiguous 3 mm thick axial projection images were obtained through the chest. 2D sagittal and coronal reconstructions were performed. Radiation optimization: All CT scans at this facility use at least one of these dose optimization techniques: automated exposure control; mA and/or kV adjustment per patient size (includes targeted exams where dose is matched to clinical indication); or iterative reconstruction. FINDINGS: Lower neck: The thyroid gland is normal. There is no supraclavicular lymphadenopathy. Mediastinum: There are a few, not pathologically enlarged, mediastinal lymph nodes. Heart/thoracic aorta: The heart size is normal. There is a minimal pericardial effusion. There is calcific vascular disease of the thoracic aorta and coronary arteries. Upper abdomen: Fatty liver infiltration. There is thickening of the limbs of the adrenal glands suggesting hyperplasia. There is calcific vascular disease of the abdominal aorta. Thoracic esophagus: Normal. Chest wall and axilla: The soft tissues of the chest wall appear normal. There is no axillary lymphadenopathy. There are hemangiomas in the T4 and T8 vertebral bodies. There is degenerative disc disease, T7-8 and T8-9. Lung parenchyma: There is minimal residual mosaic perfusion of the lungs. There is linear scarring or atelectasis in both lung apices. There are no pulmonary nodules. There are no pleural effusions. IMPRESSION: 1. Minimal residual mosaic perfusion of the lungs. 2. Calcific vascular disease of the thoracoabdominal aorta and coronary arteries. 3. Fatty liver infiltration. 4. Other findings as noted. <Electronically signed by Gregorio West > 12/17/20 [id number]
== END ==
LOC: M RAD 09:51
PROVIDERS: ATTEND Internal Medicine Pulmonary Disease
DX: Z86.16 Personal history of COVID-19 (principal); R93.1 Abnormal findings on diagnostic imaging of heart and coronary circulation; K76.0 Fatty (change of) liver, not elsewhere classified; M51.34 Other intervertebral disc degeneration, thoracic region

== ENCOUNTER → 2021-10-03 | Outpatient (REF) | payer OTHER ==
[~2021-10-03] MED LIST changes: -IBUP200T45 PO; +IBUP200T46 PO
== END ==
LOC: M LAB REF 16:16
PROVIDERS: ATTEND Physician Assistant Medical
DX: L02.212 Cutaneous abscess of back [any part, except buttock and flank] (principal); Z86.16 Personal history of COVID-19

== ENCOUNTER → 2021-12-05 | Outpatient (CLI) | payer OTHER ==
[~2021-12-05] MED LIST changes: +ISOVUE-370 76% 100ML VIAL As Ordered ONE
== END ==
LOC: M RAD 07:28
PROVIDERS: ATTEND Internal Medicine Pulmonary Disease
DX: R91.8 Other nonspecific abnormal finding of lung field (principal); Z86.16 Personal history of COVID-19
CPT/HCPCS: 71260; Q9967

== ENCOUNTER → 2022-05-30 | Outpatient (CLI) | payer OTHER ==
[~2022-05-30] MED LIST changes: -ISOVUE-370 76% 100ML VIAL As Ordered ONE
== END ==
LOC: M PLAIMG 10:03
PROVIDERS: ATTEND Internal Medicine Pulmonary Disease
DX: U09.9 Post COVID-19 condition, unspecified (principal)

== ENCOUNTER → 2023-05-01 | Outpatient (CLI) | payer OTHER, MEDICARE | LOC: M PLAIMG 09:29 | PROVIDERS: ATTEND Internal Medicine Pulmonary Disease | DX: Z86.16 Personal history of COVID-19 (principal) ==

== ENCOUNTER → 2024-08-01 | Outpatient (CLI) | payer OTHER, MEDICARE | LOC: M PLALAB 08:40 → M PLAIMG 08:40 | PROVIDERS: ATTEND Internal Medicine Pulmonary Disease | DX: Z86.16 Personal history of COVID-19 (principal) ==

== ENCOUNTER 2025-03-04 08:04 | Day surgery (SDC) | payer OTHER, MEDICARE ==
[~2025-03-04] VITALS: Ht 185.4 cm; Wt 137.9 kg
[~2025-03-04 08:04] MED LIST changes: +ALBU8.5H INH; +FLUT1BLS8 INH; +OLME1TAB91 PO; +VITA-243 PO; +VITA100066 PO; +ZINC220CA PO
[2025-03-04] MEDS ORDERED: LIDOCAINE 2% 100 MG/5 ML SDV (FOR ANES.) As Ordered ONE (08:05)
[2025-03-04 09:22] VITALS: TEMP 97.9
[2025-03-04 09:37] VITALS: BP 120/80; O2SAT 97
== END 2025-03-04 09:48 | disposition home or self-care (01) ==
LOC: M OPP 08:04
PROVIDERS: ATTEND Surgery
DX: D12.6 Benign neoplasm of colon, unspecified (principal); K63.89 Other specified diseases of intestine; K52.9 Noninfective gastroenteritis and colitis, unspecified; R10.32 Left lower quadrant pain; R10.31 Right lower quadrant pain; R93.3 Abnormal findings on diagnostic imaging of other parts of digestive tract; G47.30 Sleep apnea, unspecified; J44.9 Chronic obstructive pulmonary disease, unspecified; Z79.51 Long term (current) use of inhaled steroids; Z79.899 Other long term (current) drug therapy; Z86.711 Personal history of pulmonary embolism; Z87.891 Personal history of nicotine dependence